=== PATIENT | female | born 1950 | race Two or more races ===

== ENCOUNTER 2019-02-04 11:45 | Emergency (ER) | payer OTHER | END 2019-02-04 18:00 | disposition home or self-care (01) | LOC: JER 11:45 ==

== ENCOUNTER 2019-02-22 16:24 | Inpatient (IN) | payer OTHER ==
[2019-02-22] MEDS ORDERED: KETOROLAC TROMETHAMINE 15 MG/ML VIAL IVPUSH ONE (16:37)
[2019-02-22] MEDS ORDERED: SODIUM CHLORIDE 0.9% 500 ML INFUS.BAG IV ONE (16:37)
--- NOTE | 2019-02-22 16:37 | PDOC ---
History of Present Illness - General Chief Complaint: Urinary Problem Stated Complaint: URINARY PROBLEMS Time Seen by Provider: 02/22/19 16:28 History Source: Patient Exam Limitations: No Limitations - History of Present Illness Initial Comments: 02/22/19 16:37 68YOF with h/o nephrolithiasis, recently diagnosed UTI (finished course of Keflex 2 days ago without symptomatic relief, sees Dr. Stone), IDDM, HTN, HLD , CVA, who p/w subjective fever since yesterday night, also urinary hesitancy and abdominal pain and bilateral flank pain. She notes the abdominal pain is mostly concentrated on the low abdomen but is diffuse. She has burning on urination but denies blood in the urine. She notes 2-3 months of milder abdominal pain but her current pain is much worse than normal per her report. She had her last colonoscopy/endoscopy about 2 years ago and had only a polyp removed which was not cancerous per her report. She struggles with irregular constipation and takes a bowel regimen at home, but has not had a BM in 3 days ( states this does happen to her sometimes). Past History - Past Medical History Allergies/Adverse Reactions: Allergies Allergy/AdvReac Type Severity Reaction Status Date / Time No Known Allergies Allergy Verified 02/22/19 16:32 Home Medications: Ambulatory Orders Losartan Potassium 50 mg PO DAILY 03/20/15 Alprazolam [Xanax] 1 mg PO TID #90 tablet MDD 3 06/29/16 Furosemide [Lasix -] 20 mg PO DAILY #30 tablet 06/29/16 Metoprolol Tartrate 50 mg PO DAILY #0 06/29/16 Topiramate [Trokendi Xr] 100 mg PO BID #0 06/29/16 Esomeprazole Magnesium [Nexium 24Hr] 40 mg PO HS 04/23/18 Insulin Degludec [Tresiba Flextouch U-100] 100 unit SQ DAILY 04/23/18 Liraglutide [Victoza -] 0.6 mg SQ DAILY@0700 04/23/18 Losartan Potassium [Cozaar -] 50 mg PO DAILY 04/23/18 Montelukast Sodium [Singulair] 10 mg PO DAILY 04/23/18 Naloxegol Oxalate [Movantik] 25 mg PO DAILY 04/23/18 Ondansetron [Zofran -] 4 mg PO BID #8 tablet 04/23/18 Oxybutynin Chloride [Ditropan -] 5 mg PO DAILY 04/23/18 metFORMIN XR [Glucophage *Xr* -] 500 mg PO BID 04/23/18 CVA: Yes COPD: No Diabetes: Yes HTN: Yes Psychiatric Problems: Yes (anxiety) - Surgical History Abdominal Surgery: Yes (tubal ligation) Appendectomy: Yes Cholecystectomy: Yes - Immunization History Immunization Up to Date: Yes - Suicide/Smoking/Psychosocial Hx Smoking History: Never smoked Hx Alcohol Use: No Drug/Substance Use Hx: No Substance Use Type: None Review of Systems - Review of Systems Able to Perform ROS?: Yes Comments:: 02/22/19 16:50 GEN: subjective fever, malaise, no generalized weakness, or weight change HEENT: sore throat, no ear pain, vision change, or eye pain CV: no chest pain, palpitations, lightheadedness, syncope, or edema RESP: no cough, wheezing, or SOB GI: abdominal pain, no nausea, vomiting, diarrhea, constipation, or white/black/ bloody stool : flank pain, dysuria, retention, no hematuria, incontinence, bleeding, or discharge MSK: no neck pain, muscle weakness/pain, or joint swelling/pain NEURO: no headache, seizure, vertigo, numbness, tingling, or focal weakness PSYCH: no substance use, no behavior change SKIN: no jaundice, no rash ROS otherwise negative except as noted in HPI *Physical Exam - Vital Signs 02/22/19 17:00 Initial Vital Signs Temp Pulse Resp BP Pulse Ox 98.0 F 82 16 141/67 97 02/22/19 16:28 02/22/19 16:28 02/22/19 16:28 02/22/19 16:28 02/22/19 16:28 - Physical Exam Comments: 02/22/19 17:00 GENERAL: a bit uncomfortable but well-appearing and nontoxic, A/Ox4, no distress at rest, answers questions appropriately, accompanied by HEENT: PERRLA, EOMI, moist mucous membranes NECK/BACK: no midline ttp, no spinal stepoff or deformity, no hematoma, full ROM , neck supple CARDIOVASCULAR: regular rate/rhythm, normal S1S2, no MGR, strong peripheral pulses, capillary refill <2 seconds, extremities wwp, no edema LUNGS/RESPIRATORY: no respiratory distress, CTAB GI/ABDOMEN: symmetric [id number], normoactive BS, soft, moderare suprapubic ttp and mild diffuse ttp of the remainder of the abdomen, no midline pulsatile masses : bilateral CVA tenderness EXTREMITIES: no muscle atrophy, no acute deformity SKIN: warm and dry, no pallor, no jaundice, no rash, no bruising, no skin breakdown, no cuts, no lesions NEUROLOGICAL: GCS 15, CN II-XII grossly intact, 5/5 strength proximally and distally, no facial droop Procedures - Bedside Ultrasound Remarks: STUDY: renal and bladder INDICATION: flank pain, reported urinary retention, dysuria, h/o renal stones FINDINGS: no hydronephrosis, no e/o obstructive uropathy, normal renal size bilaterally CONCLUSION: retained urine >200cc immediately after urination but otherwise normal renal/bladder US Heart Score/ECG Review #1 02/22/19 18:51 NSR rate 66 with normal axis and intervals, isolated TWI in III, no ischemic ST- T changes ED Treatment Course - LABORATORY CBC & Chemistry Diagram: 02/22/19 19:55 02/22/19 19:55 Medical Decision Making - Medical Decision Making 02/22/19 17:03 68YOF with h/o nephrolithiasis and recent UTI tx with Keflex with course ending 2 days ago. Initial Vital Signs Temp Pulse Resp BP Pulse Ox 98.0 F 82 16 141/67 97 02/22/19 16:28 02/22/19 16:28 02/22/19 16:28 02/22/19 16:28 02/22/19 16:28 Exam: As noted in Physical Exam section. DDX IBNLT: UTI, pyelonephritis, cervicitis, PID, TOA, other STD/STI, vaginal lesion, vulvuvaginal candidiasis, interstitial cystitis, neurogenic bladder, renal colic, obstructive uropathy, ectopic, ovarian torsion, ovarian cyst, endometritis, malignancy, hernia, appendicitis, proctitis, sigmoid diverticulitis wwo abscess or perforation, endometriosis, primary dysmenorrhea, etc. W/U ordered: CBCD CMP Lipase UA UCx TX ordered: IVF, Toradol Patient's labs resulted under under newly-created patient record for her. These MRNs will need to be merged but I am informed by Registration that Medical Records will need to do this later. The following are blood lab results from the patient's newly-created record. I have contacted Chemistry lab and they are working on transferring these to her official record. Laboratory Tests 02/22/19 02/22/19 02/22/19 17:00 17:00 17:00 WBC 9.9 RBC 4.55 Hgb 11.8 Hct 35.9 MCV 78.8 L MCH 25.9 MCHC 32.9 RDW 15.2 Plt Count 211 MPV 10.6 Absolute Neuts (auto) 5.0 Neutrophils % 50.7 Lymphocytes % 37.0 Monocytes % 6.8 Eosinophils % 4.3 Basophils % 1.2 Nucleated RBC % 0 Sodium 139 Potassium 4.1 Chloride 104 Carbon Dioxide 30 Anion Gap 5 L BUN 6.9 L Creatinine 0.7 Est GFR (CKD-EPI)AfAm 101.74 Est GFR (CKD-EPI)NonAf 87.78 Random Glucose 113 H Lactic Acid 1.8 Calcium 9.2 Total Bilirubin 0.5 AST 25 ALT 24 Alkaline Phosphatase 77 Total Protein 8.0 Albumin 3.8 POCUS: See "Procedures" section Labs drawn as below: Laboratory Tests 02/22/19 02/22/19 02/22/19 19:55 19:55 19:55 WBC 9.1 RBC 4.20 Hgb 10.9 Hct 33.3 MCV 79.4 L MCH 25.9 MCHC 32.6 RDW 14.9 Plt Count 200 MPV 10.4 Absolute Neuts (auto) 5.0 Neutrophils % 54.9 Lymphocytes % 34.2 Monocytes % 6.6 Eosinophils % 3.7 Basophils % 0.6 Nucleated RBC % 0 Sodium 141 Potassium 4.2 Chloride 106 Carbon Dioxide 29 Anion Gap 6 L BUN 7.0 Creatinine 0.7 Est GFR (CKD-EPI)AfAm 101.74 Est GFR (CKD-EPI)NonAf 87.78 Random Glucose 110 H Calcium 8.7 Total Bilirubin 0.4 AST 22 ALT 24 Alkaline Phosphatase 72 Total Protein 7.3 Albumin 3.6 Lipase 111 Urine Color Urine Appearance Urine pH Ur Specific [place] Urine Protein Urine Glucose (UA) Urine Ketones Urine Blood Urine Nitrite Urine Bilirubin Urine Urobilinogen Ur Leukocyte Esterase 02/22/19 20:05 WBC RBC Hgb Hct MCV MCH MCHC RDW Plt Count MPV Absolute Neuts (auto) Neutrophils % Lymphocytes % Monocytes % Eosinophils % Basophils % Nucleated RBC % Sodium Potassium Chloride Carbon Dioxide Anion Gap BUN Creatinine Est GFR (CKD-EPI)AfAm Est GFR (CKD-EPI)NonAf Random Glucose Calcium Total Bilirubin AST ALT Alkaline Phosphatase Total Protein Albumin Lipase Urine Color Yellow Urine Appearance Clear Urine pH 7.5 Ur Specific [place] 1.007 L Urine Protein Negative Urine Glucose (UA) Negative Urine Ketones Negative Urine Blood Negative Urine Nitrite Negative Urine Bilirubin Negative Urine Urobilinogen 0.2 Ur Leukocyte Esterase Negative 02/22/19 21:05 UA is unexpectedly negative, so we have no explanation for her abdominal/flank pain. Rectal exam without impaction or gross blood. CT Abdomen/Pelvis ordered. CT/ABDOMEN PELVIS CT WITH CONTR HISTORY PROVIDED: Lower abdominal pain. Sequential axial images were obtained from the domes of the diaphragms through the symphysis pubis following the administration of intravenous contrast material. The lung bases are clear. There is a calcified granuloma within the right lower lobe. The liver is normal in size. It is hypodense in texture consistent with diffuse fatty infiltration. No mass lesions are identified within the liver. The spleen, pancreas, adrenal glands and kidneys demonstrate no significant abnormalities. The gallbladder has been removed. There is no evidence of intra-abdominal or retroperitoneal lymphadenopathy or fluid collections. There is no evidence of pneumoperitoneum, bowel obstruction or intra-abdominal abscess. There is no CT evidence of acute appendicitis or diverticulitis. Examination of the pelvis demonstrates no evidence of pelvic masses, fluid collections or lymphadenopathy. There is no evidence of acute bony pathology. IMPRESSION: Diffuse fatty infiltration of the liver with no evidence of acute pathology within the abdomen or pelvis. 02/22/19 22:33 The Pts symptoms persist despite ED treatments. She has intractable abdominal pain despite toradol, morphine, Ofirmev, GI meds. She is unsafe for discharge at this time. She requires further hospital observation, workup, and treatment. Microblog sent to [facility] for admission for Dr. Humphreys patients at this time. Blank Decision to Admit order is placed per ED protocol. 02/22/19 23:[address] Meza and Decision to Admit order corrected with Dr. Humphreys' s name per Dr. Meza' request. *DC/Admit/Observation/Transfer Diagnosis at time of Disposition: Intractable abdominal pain - Discharge Dispostion Condition at time of disposition: Guarded Decision to Admit order: Yes - Referrals Referrals: Hannah Humphreys MD [Primary Care Provider] - - Patient Instructions - Post Discharge Activity
--- NOTE | 2019-02-22 17:22 | PDOC ---
Documentation entered by Wilberto Bella SCRIBE, acting as scribe for Deidra Gibson DO. Deidra Gibson DO: This documentation has been prepared by the Shayne bolanos Aiswarya, SCRIBE, under my direction and personally reviewed by me in its entirety. I confirm that the documentation accurately reflects all work, treatment, procedures, and medical decision making performed by me. Attending Attestation - Resident Resident Name: Audrey Tenorio - ED Attending Attestation I have performed the following: I have examined & evaluated the patient, The case was reviewed & discussed with the resident, I agree w/resident's findings & plan, Exceptions are as noted - HPI HPI: 02/22/19 16:53 The patient is a 68 year old female, with a significant PMH of diabetes, CVA, HTN, and anxiety who presents to the emergency department with possible kidney stones. Patient endorses associated symptom of bilateral flank pain, abdominal pain, and urinary hesitancy that began a few weeks. The patient mentions she finished her course of Keflex 2 days ago without symptomatic reliefs. The patient denies chest pain, shortness of breath, headache and dizziness.Denies fever, chills, nausea, vomit, diarrhea and constipation. Denies frequency, urgency and hematuria. Allergies: NKDA Past surgical history: tubal ligation Social history: None reported PCP: Dr. Humphreys - Physicial Exam PE: 02/22/19 16:55 Constitutional: Awake, alert, oriented. No acute distress. Head: Normocephalic. Atraumatic Cardiovascular: Regular rate. Regular rhythm. S1, S2 regular. Distal pulses are 2+ and symmetric. Pulmonary/Chest: No evidence of respiratory distress. Clear to auscultation bilaterally No wheezing, rales or rhonchi. Abdominal: +Right lower and suprapubic tenderness. Back: +Lower pelvis bilateral CVA right greater than left. Skin: Skin is warm and dry. No petechiae. No purpura. Neurological: Alert and oriented to person, place, and time. Cranial nerves II -XII are grossly intact. Normal speech. Strength is grossly symmetric. No sensory deficits. Psychiatric: Good eye contact. Normal interaction, affect and behavior. - Medical Decision Making 02/22/19 17:21 I, Dr. Deidra Kurkowski, DO, attest that this document has been prepared under my direction and personally reviewed by me in its entirety. I further attest, that it accurately reflects all work, treatment, procedures and medical decision -making performed by me. 02/22/19 17:24 a/p: 68yo female with hx of renal colic and uti - follows with fabián brayden and nicanor with b/l flank pain and dysuria -pt stopped abx 2 days ago, was on keflex until 2 days ago -dysuria, hesitancy, no hematuria -subjective fever last night -b/l cva ttp -suprapubic ttp -suspect uti and pyelo -will send labs, ua, ucx -bedside ultrasound of the kidneys/bladder - indication: flank pain, suprapubic pain, hx of renal stones -no hydro b/l, bladder has 266cc, no ff, pt had just urinated, with remaining 266cc urine 02/22/19 17:32 will give ivf hydration, suspect pt with uti failed outpt therapy, will need iv abx 02/22/19 19:09 wbc not elevated, 9.9 renal function not elevated, bun 6.9, cr 0.7 02/22/19 19:10 ua pending 02/22/19 20:56 no uti, ua neg will obtain ct abd/pelvis for further eval 02/22/19 22:20 fatty liver infiltration on ct no acute pathology stool in R colon 02/22/19 23:16 resident discussed the case with Dr. Meza who accepts the patient to obs Heart Score/ECG Review - ECG Intrepretation Comment:: 02/22/19 19:08 sinus at 66, low voltage, nl axis, no acute s/tt wave findings
[2019-02-22 20:12] LABS: BASO % 0.6 % (0-2.0); EOS % 3.7 % (0-4.5); HEMATOCRIT 33.3 % (32.4-45.2); HEMOGLOBIN 10.9 GM/dL (10.7-15.3); LYMPH % 34.2 % (8-40); MCH 25.9 pg (25.7-33.7); MCHC 32.6 g/dl (32.0-36.0); MEAN CELL VOLUME 79.4 fl (80-96); MEAN PLT VOLUME 10.4 fl (7.5-11.1); MONO % 6.6 % (3.8-10.2); NEUT % 54.9 % (42.8-82.8); PLATELET COUNT 200 K/MM3 (134-434); RDW 14.9 % (11.6-15.6); WHITE BLOOD COUNT 9.1 K/mm3 (4.0-10.0)
[2019-02-22 20:38] LABS: ALBUMIN 3.6 g/dl (3.4-5.0); BILIRUBIN,TOTAL 0.4 mg/dL (0.2-1); CALCIUM 8.7 mg/dL (8.5-10.1); CREATININE 0.7 mg/dL (0.55-1.3); POTASSIUM 4.2 mmol/L (3.5-5.1); TOT PROT 7.3 g/dl (6.4-8.2)
[2019-02-22 20:40] LABS: PH,URINE 7.5 (5.0-8.0); URINE APPEARANCE CLEAR; URINE BILIRUBIN NEGATIVE (NEGATIVE); URINE COLOR YELLOW; URINE GLUCOSE (UA) NEGATIVE (NEGATIVE); URINE KETONE NEGATIVE (NEGATIVE); URINE LEUK ESTERASE NEGATIVE (NEGATIVE); URINE NITRITE NEGATIVE (NEGATIVE); URINE PROTEIN NEGATIVE (NEGATIVE); URINE UROBILINOGEN 0.2 mg/dL (0.2-1.0)
[2019-02-22] MEDS ORDERED: morphine CARPU-JECT 4 MG/1 ML DISP.SYRIN IVPUSH ONE (21:03)
[2019-02-22] MEDS ORDERED: ONDANSETRON 4 MG/2 ML VIAL IVPUSH ONE (21:04)
[2019-02-22] MEDS ORDERED: MAGNESIUM CITRATE 300 ML BOTTLE PO ONE (22:32)
[2019-02-22] MEDS ORDERED: ACETAMINOPHEN 1000 MG/100 ML VIAL (NON FORMULARY) IVPB ONE (22:32)
[2019-02-22] MEDS ORDERED: FAMOTIDINE 20 MG/50 ML IVPB 20 MG/50 ML MG IVPB ONE (22:34)
--- NOTE | 2019-02-22 23:50 | HP ---
CHIEF COMPLAINT: lower abdominal pain PCP:Petr HISTORY OF PRESENT ILLNESS: 68yo woman with underlying anxiety presented to er c/o several weeks of vague abdominal pain located to suprabic area, no radiation. Reports difficulty passing urine- says she has desire to urinate but cannot. Recently underwent course of Keflex for uti. Reports some constipation- last BM -3days ago. ER course was notable for: (1) morphine (2) ketorolac (3) famotidine Recent Travel: no PAST MEDICAL HISTORY: DM, CVA, HTN, and anxiety PAST SURGICAL HISTORY: Appendectomy-20 years ago?, Cholecystectomy-10 years ago , right sided oophorectomy, tubal ligation Social History: Smoking: quit smoking at age 38 Alcohol: no Drugs: no Family History: Allergies No Known Allergies Allergy (Verified 02/22/19 16:32) HOME MEDICATIONS: Home Medications Medication Instructions Recorded Losartan Potassium 50 mg PO DAILY 03/20/15 Alprazolam [Xanax] 1 mg PO TID #90 tablet MDD 3 06/29/16 Furosemide [Lasix -] 20 mg PO DAILY #30 tablet 06/29/16 Metoprolol Tartrate 50 mg PO DAILY #0 06/29/16 Topiramate [Trokendi Xr] 100 mg PO BID #0 06/29/16 Esomeprazole Magnesium [Nexium 40 mg PO HS 04/23/18 24Hr] Insulin Degludec [Tresiba 100 unit SQ DAILY 04/23/18 Flextouch U-100] Liraglutide [Victoza -] 0.6 mg SQ DAILY@0700 04/23/18 Losartan Potassium [Cozaar -] 50 mg PO DAILY 04/23/18 Montelukast Sodium [Singulair] 10 mg PO DAILY 04/23/18 Naloxegol Oxalate [Movantik] 25 mg PO DAILY 04/23/18 Ondansetron [Zofran -] 4 mg PO BID #8 tablet 04/23/18 Oxybutynin Chloride [Ditropan -] 5 mg PO DAILY 04/23/18 metFORMIN XR [Glucophage *Xr* -] 500 mg PO BID 04/23/18 REVIEW OF SYSTEMS CONSTITUTIONAL: Absent: fever, chills, diaphoresis, generalized weakness, malaise, loss of appetite, weight change HEENT: Absent: rhinorrhea, nasal congestion, throat pain, throat swelling, difficulty swallowing, mouth swelling, ear pain, eye pain, visual changes CARDIOVASCULAR: Absent: chest pain, syncope, palpitations, irregular heart rate, lightheadedness , peripheral edema RESPIRATORY: Absent: cough, shortness of breath, dyspnea with exertion, orthopnea, wheezing, stridor, hemoptysis GASTROINTESTINAL: Absent: , abdominal distension, nausea, vomiting, diarrhea, melena, hematochezia present- abdominal pain constipation, GENITOURINARY: Absent: dysuria, frequency, urgency, hesitancy, hematuria, flank pain, genital pain MUSCULOSKELETAL: Absent: myalgia, arthralgia, joint swelling, back pain, neck pain SKIN: Absent: rash, itching, pallor HEMATOLOGIC/IMMUNOLOGIC: Absent: easy bleeding, easy bruising, lymphadenopathy, frequent infections ENDOCRINE: Absent: unexplained weight gain, unexplained weight loss, heat intolerance, cold intolerance NEUROLOGIC: Absent: headache, focal weakness or paresthesias, dizziness, unsteady gait, seizure, mental status changes, bladder or bowel incontinence PSYCHIATRIC: Absent: depression, suicidal or homicidal ideation, hallucinations. present- anxiety, PHYSICAL EXAMINATION Vital Signs - 24 hr 02/22/19 16:28 Temperature 98.0 F Pulse Rate 82 Respiratory 16 Rate Blood Pressure 141/67 O2 Sat by Pulse 97 Oximetry (%) GENERAL: Awake, alert, and fully oriented, in no acute distress. HEAD: Normal with no signs of trauma. EYES: Pupils equal, round and reactive to light, extraocular movements intact, sclera anicteric, conjunctiva clear. No lid lag. EARS, NOSE, THROAT: Ears normal, nares patent, oropharynx clear without exudates. Moist mucous membranes. NECK: Normal range of motion, supple without lymphadenopathy, JVD, or masses. LUNGS: Breath sounds equal, clear to auscultation bilaterally. No wheezes, and no crackles. No accessory muscle use. HEART: Regular rate and rhythm, normal S1 and S2 without murmur, rub or gallop. ABDOMEN: Soft, tender in eppigastric and right lower quadrant, not distended, normoactive bowel sounds, no guarding, no rebound, no masses. MUSCULOSKELETAL: Normal range of motion at all joints. No bony deformities or tenderness. No CVA tenderness. UPPER EXTREMITIES: 2+ pulses, warm, well-perfused. No cyanosis. No clubbing. No peripheral edema. LOWER EXTREMITIES: 2+ pulses, warm, well-perfused. No calf tenderness. No peripheral edema. NEUROLOGICAL: Cranial nerves II-XII intact. Normal speech. Normal gait. PSYCHIATRIC: Cooperative. Good eye contact. Appropriate mood and affect. SKIN: Warm, dry, normal turgor, no rashes or lesions noted, normal capillary refill. Laboratory Results - last 24 hr 02/22/19 02/22/19 02/22/19 19:55 19:55 19:55 WBC 9.1 RBC 4.20 Hgb 10.9 Hct 33.3 MCV 79.4 L MCH 25.9 MCHC 32.6 RDW 14.9 Plt Count 200 MPV 10.4 Absolute Neuts (auto) 5.0 Neutrophils % 54.9 Lymphocytes % 34.2 Monocytes % 6.6 Eosinophils % 3.7 Basophils % 0.6 Nucleated RBC % 0 Sodium 141 Potassium 4.2 Chloride 106 Carbon Dioxide 29 Anion Gap 6 L BUN 7.0 Creatinine 0.7 Est GFR (CKD-EPI)AfAm 101.74 Est GFR (CKD-EPI)NonAf 87.78 Random Glucose 110 H Calcium 8.7 Total Bilirubin 0.4 AST 22 ALT 24 Alkaline Phosphatase 72 Total Protein 7.3 Albumin 3.6 Lipase 111 Urine Color Urine Appearance Urine pH Ur Specific [place] Urine Protein Urine Glucose (UA) Urine Ketones Urine Blood Urine Nitrite Urine Bilirubin Urine Urobilinogen Ur Leukocyte Esterase 02/22/19 20:05 WBC RBC Hgb Hct MCV MCH MCHC RDW Plt Count MPV Absolute Neuts (auto) Neutrophils % Lymphocytes % Monocytes % Eosinophils % Basophils % Nucleated RBC % Sodium Potassium Chloride Carbon Dioxide Anion Gap BUN Creatinine Est GFR (CKD-EPI)AfAm Est GFR (CKD-EPI)NonAf Random Glucose Calcium Total Bilirubin AST ALT Alkaline Phosphatase Total Protein Albumin Lipase Urine Color Yellow Urine Appearance Clear Urine pH 7.5 Ur Specific [place] 1.007 L Urine Protein Negative Urine Glucose (UA) Negative Urine Ketones Negative Urine Blood Negative Urine Nitrite Negative Urine Bilirubin Negative Urine Urobilinogen 0.[address] ct of abdomen wnl ASSESSMENT/PLAN: #Intractable abdominal pain- no source identified. CT of abd/pelvis normal. No renal stones seen. LFTs, lipase normal. Differential includes constipation, urinary retention, adhesions from prior surgeries, gastritis. -admit to med/surg -fleets enema -protonix 40mg po -alcaraz catheter for possible urinary retention -pelvic u/s to assess for adhesions -tylenol prn for pain #anxiety -home xanax prn #headache/migraines -c/w Topiramate home dose #htn -borderline controlled -furosemide -metoprolol -losartan #DM -novolog sliding scale -diabetic diet #dvt ppx -SCDs Visit type - Emergency Visit Emergency Visit: Yes ED Registration Date: 02/22/19 Care time: The patient presented to the Emergency Department on the above date and was hospitalized for further evaluation of their emergent condition. - New Patient This patient is new to me today: Yes Date on this admission: 02/23/19 - Critical Care Critical Care patient: No
[2019-02-22] MEDS ORDERED: PANTOPRAZOLE 40 MG TABLET (FP) PO ONE (23:54)
[2019-02-22] MEDS ORDERED: SODIUM PHOSPHATE/NA BIPHOS 133 ML ENEMA PR ONE (23:55)
[2019-02-23] MEDS: SODIUM CHLORIDE 1,000 ML IV SCH ×2 (00:41→20:00)
[2019-02-23] MEDS: ACETAMINOPHEN 325 MG TABLET (FP) PO PRN (02:21)
[2019-02-23] MEDS: ALPRAZolam 0.25 MG TABLET PO SCH ×3 (06:18→21:23)
[2019-02-23] MEDS: DOCUSATE SODIUM 100 MG CAPSULE (FP) PO SCH ×3 (06:18→21:27)
[2019-02-23] MEDS: INSULIN SLIDING SCALE (NOVOLOG) 1 VIAL SQ SCH ×4 (06:21→21:25)
[2019-02-23] MEDS: KETOROLAC TROMETHAMINE 15 MG/ML VIAL IVPUSH PRN (06:40)
[2019-02-23 07:45] LABS: HEMATOCRIT 31.6 % (32.4-45.2); HEMOGLOBIN 10.5 GM/dL (10.7-15.3); MCHC 33.2 g/dl (32.0-36.0); MEAN CELL VOLUME 78.2 fl (80-96); MEAN PLT VOLUME 10.6 fl (7.5-11.1); PLATELET COUNT 184 K/MM3 (134-434); RBC 4.04 M/mm3 (3.60-5.2); RDW 14.9 % (11.6-15.6)
[2019-02-23 07:50] LABS: BLOOD UREA NITROGEN 6.8 mg/dL (7-18); CALCIUM 8.7 mg/dL (8.5-10.1); CREATININE 0.7 mg/dL (0.55-1.3); POTASSIUM 4.4 mmol/L (3.5-5.1)
[2019-02-23] MEDS ORDERED: PATIENT'S OWN MEDICATION (NON-FORMULARY) (Esomeprazole Magnesium [Nexium 24hr] 40 MG) PO SCH (09:00)
[2019-02-23] MEDS: PANTOPRAZOLE 40 MG TABLET (FP) PO SCH (09:30)
[2019-02-23] MEDS: FUROSEMIDE 20 MG TABLET (FP) PO SCH (09:31)
[2019-02-23] MEDS: METOPROLOL TARTRATE 50 MG TABLET (FP) PO SCH (09:31)
[2019-02-23] MEDS: LOSARTAN POTASSIUM 50 MG TABLET (FP) PO SCH (09:31)
[2019-02-23] MEDS ORDERED: PATIENT'S OWN MEDICATION (NON-FORMULARY) (Topiramate [Trokendi Xr] 100 MG) PO SCH (10:00)
[2019-02-23] MEDS ORDERED: LOSARTAN POTASSIUM 25 MG TABLET PO SCH (10:00)
--- NOTE | 2019-02-23 10:50 | PN ---
Progress Note, Physician Chief Complaint: AWAKE ALERT EVENTS AND NOTES REVIEWED C/O ABD/SUPRAPUBIC PAIN SOME NAUSEA - Current Medication List Current Medications: Active Medications Acetaminophen (Tylenol -) 650 mg PO Q4H PRN PRN Reason: PAIN LEVEL 1-5 Last Admin: 02/23/19 02:21 Dose: 650 mg Alprazolam (Xanax -) 1 mg PO TID REPLACED BY [facility] Last Admin: 02/23/19 06:18 Dose: 1 mg Docusate Sodium (Colace -) 100 mg PO TID REPLACED BY [facility] Last Admin: 02/23/19 06:18 Dose: 100 mg Furosemide (Lasix -) 20 mg PO DAILY REPLACED BY [facility] Last Admin: 02/23/19 09:31 Dose: 20 mg Sodium Chloride (Normal Saline -) 1,000 mls @ 75 mls/hr IV ASDIR REPLACED BY [facility] Last Admin: 02/23/19 00:41 Dose: 75 mls/hr Insulin Aspart (Novolog Vial Sliding Scale -) 1 vial SQ ACHS REPLACED BY [facility]; Protocol Last Admin: 02/23/19 06:21 Dose: Not Given Ketorolac Tromethamine (Toradol Injection -) 15 mg IVPUSH Q6H PRN PRN Reason: PAIN LEVEL 1-5 Stop: 02/28/19 06:21 Last Admin: 02/23/19 06:40 Dose: 15 mg Losartan Potassium (Cozaar -) 50 mg PO DAILY REPLACED BY [facility] Last Admin: 02/23/19 09:31 Dose: 50 mg Metoprolol Tartrate (Lopressor -) 50 mg PO DAILY REPLACED BY [facility] Last Admin: 02/23/19 09:31 Dose: 50 mg Montelukast Sodium (Singulair -) 10 mg PO HS REPLACED BY [facility] Non-Formulary Medication (Topiramate [Trokendi Xr]) 100 mg PO BID REPLACED BY [facility] Pantoprazole Sodium (Protonix -) 40 mg PO DAILY REPLACED BY [facility] Last Admin: 02/23/19 09:30 Dose: 40 mg - Objective Vital Signs: Vital Signs Temperature 97.7 F 02/23/19 10:17 Pulse Rate 65 02/23/19 10:17 Respiratory Rate 20 02/23/19 10:17 Blood Pressure 124/59 L 02/23/19 10:17 O2 Sat by Pulse Oximetry (%) 99 02/23/19 08:00 Constitutional: Yes: Mild Distress Eyes: Yes: WNL HENT: Yes: WNL Neck: Yes: WNL Cardiovascular: Yes: Regular Rate and Rhythm Respiratory: Yes: WNL Gastrointestinal: Yes: Tenderness Genitourinary: Yes: WNL Musculoskeletal: Yes: WNL Extremities: Yes: WNL Edema: No Peripheral Pulses WNL: Yes Integumentary: Yes: WNL Wound/Incision: Yes: Clean/Dry Neurological: Yes: WNL ...Motor Strength: WNL Psychiatric: Yes: WNL Labs: CBC, BMP 02/23/19 06:24 02/23/19 06:24 Problem List - Problems (1) Intractable abdominal pain Code(s): R10.9 - UNSPECIFIED ABDOMINAL PAIN (2) Headache Code(s): R51 - HEADACHE (3) DMII (diabetes mellitus, type 2) Code(s): E11.9 - TYPE 2 DIABETES MELLITUS WITHOUT COMPLICATIONS (4) Anxiety Code(s): F41.9 - ANXIETY DISORDER, UNSPECIFIED (5) HTN (hypertension) Code(s): I10 - ESSENTIAL (PRIMARY) HYPERTENSION Assessment/Plan SURGICAL EVAL D/W DR MARQUIS QUESTIONABLE RULE OUT OF SURGICAL ADHESIONS? PPI IVF ZOFRAN PAIN CONTROL DM CHECK A1C BMG ACHS
[2019-02-23] MEDS ORDERED: ONDANSETRON *ODT* 4 MG TABLET SL PRN (10:51)
[2019-02-23] MEDS ORDERED: INSULIN (NOVOLOG) ASPART 100 UNITS/ML 10ML VIAL ONE (21:20)
[2019-02-23] MEDS: MONTELUKAST NA 10 MG TABLET PO SCH (21:24)
[2019-02-24] MEDS: KETOROLAC TROMETHAMINE 15 MG/ML VIAL IVPUSH PRN (01:27)
[2019-02-24] MEDS: INSULIN SLIDING SCALE (NOVOLOG) 1 VIAL SQ SCH ×4 (06:02→21:57)
[2019-02-24] MEDS: ALPRAZolam 0.25 MG TABLET PO SCH ×3 (06:03→21:38)
[2019-02-24] MEDS: DOCUSATE SODIUM 100 MG CAPSULE (FP) PO SCH ×3 (06:05→21:40)
[2019-02-24 06:36] LABS: HEP.C VIRUS AB <0.1 s/co ratio (0.0-0.9)
[2019-02-24 07:36] LABS: BILIRUBIN,TOTAL 0.7 mg/dL (0.2-1); BLOOD UREA NITROGEN 7.8 mg/dL (7-18); CALCIUM 8.4 mg/dL (8.5-10.1); CREATININE 0.6 mg/dL (0.55-1.3); POTASSIUM 4.3 mmol/L (3.5-5.1); TOT PROT 6.4 g/dl (6.4-8.2)
[2019-02-24 07:37] LABS: HEMATOCRIT 32.3 % (32.4-45.2); HEMOGLOBIN 10.4 GM/dL (10.7-15.3); MCH 25.2 pg (25.7-33.7); MCHC 32.1 g/dl (32.0-36.0); MEAN CELL VOLUME 78.5 fl (80-96); MEAN PLT VOLUME 10.8 fl (7.5-11.1); RBC 4.11 M/mm3 (3.60-5.2); RDW 15.4 % (11.6-15.6); WHITE BLOOD COUNT 7.3 K/mm3 (4.0-10.0)
[2019-02-24 08:37] LABS: PLATELET COUNT 183 K/MM3 (134-434)
[2019-02-24] MEDS: SODIUM CHLORIDE 1,000 ML IV SCH ×2 (09:39→23:02)
[2019-02-24] MEDS: PANTOPRAZOLE 40 MG TABLET (FP) PO SCH (09:43)
[2019-02-24] MEDS: FUROSEMIDE 20 MG TABLET (FP) PO SCH (09:43)
[2019-02-24] MEDS: LOSARTAN POTASSIUM 50 MG TABLET (FP) PO SCH (09:43)
[2019-02-24] MEDS: METOPROLOL TARTRATE 50 MG TABLET (FP) PO SCH (09:44)
[2019-02-24] MEDS: ACETAMINOPHEN 325 MG TABLET (FP) PO PRN ×2 (09:51→21:41)
[2019-02-24] MEDS ORDERED: ALPRAZolam 2 MG TABLET PO ONE (14:21)
--- NOTE | 2019-02-24 14:21 | PN ---
Progress Note, Physician Chief Complaint: STILL 04/20 ABD/PUBIC PAIN NO FEVER POOR APPETITE - Current Medication List Current Medications: Active Medications Acetaminophen (Tylenol -) 650 mg PO Q4H PRN PRN Reason: PAIN LEVEL 1-5 Last Admin: 02/24/19 09:51 Dose: 650 mg Alprazolam (Xanax -) 1 mg PO TID [facility] Last Admin: 02/24/19 14:17 Dose: 1 mg Docusate Sodium (Colace -) 100 mg PO TID [facility] Last Admin: 02/24/19 14:16 Dose: 100 mg Furosemide (Lasix -) 20 mg PO DAILY [facility] Last Admin: 02/24/19 09:43 Dose: 20 mg Sodium Chloride (Normal Saline -) 1,000 mls @ 75 mls/hr IV ASDIR [facility] Last Admin: 02/24/19 09:39 Dose: 75 mls/hr Insulin Aspart (Novolog Vial Sliding Scale -) 1 vial SQ ACHS [facility]; Protocol Last Admin: 02/24/19 12:27 Dose: 4 units Ketorolac Tromethamine (Toradol Injection -) 15 mg IVPUSH Q6H PRN PRN Reason: PAIN LEVEL 1-5 Stop: 02/28/19 06:21 Last Admin: 02/24/19 01:27 Dose: 15 mg Losartan Potassium (Cozaar -) 50 mg PO DAILY [facility] Last Admin: 02/24/19 09:43 Dose: 50 mg Metoprolol Tartrate (Lopressor -) 50 mg PO DAILY [facility] Last Admin: 02/24/19 09:44 Dose: 50 mg Montelukast Sodium (Singulair -) 10 mg PO [facility] Last Admin: 02/23/19 21:24 Dose: 10 mg Non-Formulary Medication (Topiramate [Trokendi Xr]) 100 mg PO BID [facility] Ondansetron HCl (Zofran Odt -) 4 mg SL Q6H PRN PRN Reason: NAUSEA AND/OR VOMITING Pantoprazole Sodium (Protonix -) 40 mg PO DAILY [facility] Last Admin: 02/24/19 09:43 Dose: 40 mg - Objective Vital Signs: Vital Signs Temperature 97.5 F L 02/24/19 12:55 Pulse Rate 60 02/24/19 12:55 Respiratory Rate 20 02/24/19 12:55 Blood Pressure 141/69 02/24/19 12:55 O2 Sat by Pulse Oximetry (%) 95 02/23/19 21:00 Constitutional: Yes: Mild Distress Eyes: Yes: WNL HENT: Yes: WNL Neck: Yes: WNL Cardiovascular: Yes: WNL Respiratory: Yes: WNL Gastrointestinal: Yes: Tenderness Musculoskeletal: Yes: WNL Extremities: Yes: WNL Peripheral Pulses WNL: Yes Wound/Incision: Yes: Clean/Dry Neurological: Yes: WNL ...Motor Strength: WNL Psychiatric: Yes: WNL Labs: CBC, BMP 02/24/19 06:01 02/24/19 06:01 Problem List - Problems (1) Intractable abdominal pain Code(s): R10.9 - UNSPECIFIED ABDOMINAL PAIN (2) Headache Code(s): R51 - HEADACHE (3) DMII (diabetes mellitus, type 2) Code(s): E11.9 - TYPE 2 DIABETES MELLITUS WITHOUT COMPLICATIONS (4) Anxiety Code(s): F41.9 - ANXIETY DISORDER, UNSPECIFIED (5) HTN (hypertension) Code(s): I10 - ESSENTIAL (PRIMARY) HYPERTENSION Assessment/Plan ORDERING MRI ABD/PELVIS WITH AND W/O CONTRAST GI EVAL PAIN CONTROL OOB TO CHAIR
--- NOTE | 2019-02-24 17:08 | EKG ---
Test Reason : Blood Pressure : / mmHG Vent. Rate : 066 BPM Atrial Rate : 066 BPM P-R Int : 146 ms QRS Dur : 090 ms QT Int : 436 ms P-R-T Axes : 004 -10 015 degrees QTc Int : 457 ms NORMAL SINUS RHYTHM NORMAL ECG WHEN COMPARED WITH ECG OF 04-FEB-2019 15:01, NO SIGNIFICANT CHANGE WAS FOUND Confirmed by MD ABDIAZIZ, KEILA ([id number]) on 02/24/2019 5:08:46 PM Referred By: Confirmed By:KEILA FREED MD
[2019-02-24] MEDS: MONTELUKAST NA 10 MG TABLET PO SCH (21:38)
[2019-02-25] MEDS: ACETAMINOPHEN 325 MG TABLET (FP) PO PRN ×3 (03:03→15:14)
[2019-02-25] MEDS: ALPRAZolam 0.25 MG TABLET PO SCH ×3 (06:47→21:58)
[2019-02-25] MEDS: INSULIN SLIDING SCALE (NOVOLOG) 1 VIAL SQ SCH ×4 (06:48→21:58)
[2019-02-25] MEDS: DOCUSATE SODIUM 100 MG CAPSULE (FP) PO SCH ×3 (06:48→21:58)
[2019-02-25] MEDS: LOSARTAN POTASSIUM 50 MG TABLET (FP) PO SCH (09:12)
[2019-02-25] MEDS: PANTOPRAZOLE 40 MG TABLET (FP) PO SCH (09:12)
[2019-02-25] MEDS: FUROSEMIDE 20 MG TABLET (FP) PO SCH (09:12)
[2019-02-25] MEDS: KETOROLAC TROMETHAMINE 15 MG/ML VIAL IVPUSH PRN (09:12)
[2019-02-25] MEDS: METOPROLOL TARTRATE 50 MG TABLET (FP) PO SCH (09:12)
--- NOTE | 2019-02-25 10:43 | PN ---
Progress Note, Physician Chief Complaint: Abdominal Pain History of Present Illness: Previous notes and events reviewed awake and alert NAD complain of lower abdominal pain denies nausea, vomiting - Current Medication List Current Medications: Active Medications Acetaminophen (Tylenol -) 650 mg PO Q4H PRN PRN Reason: PAIN LEVEL 1-5 Last Admin: 02/25/19 07:03 Dose: 650 mg Alprazolam (Xanax -) 1 mg PO TID [facility] Last Admin: 02/25/19 06:47 Dose: 1 mg Alprazolam (Xanax -) 2 mg PO ONCE ONE Stop: 02/24/19 14:22 Docusate Sodium (Colace -) 100 mg PO TID [facility] Last Admin: 02/25/19 06:48 Dose: 100 mg Furosemide (Lasix -) 20 mg PO DAILY [facility] Last Admin: 02/25/19 09:12 Dose: 20 mg Sodium Chloride (Normal Saline -) 1,000 mls @ 75 mls/hr IV ASDIR [facility] Last Admin: 02/24/19 23:02 Dose: 75 mls/hr Insulin Aspart (Novolog Vial Sliding Scale -) 1 vial SQ ACHS [facility]; Protocol Last Admin: 02/25/19 06:48 Dose: 2 units Ketorolac Tromethamine (Toradol Injection -) 15 mg IVPUSH Q6H PRN PRN Reason: PAIN LEVEL 1-5 Stop: 02/28/19 06:21 Last Admin: 02/25/19 09:12 Dose: 15 mg Losartan Potassium (Cozaar -) 50 mg PO DAILY [facility] Last Admin: 02/25/19 09:12 Dose: 50 mg Metoprolol Tartrate (Lopressor -) 50 mg PO DAILY [facility] Last Admin: 02/25/19 09:12 Dose: 50 mg Montelukast Sodium (Singulair -) 10 mg PO HS [facility] Last Admin: 02/24/19 21:38 Dose: 10 mg Non-Formulary Medication (Topiramate [Trokendi Xr]) 100 mg PO BID [facility] Ondansetron HCl (Zofran Odt -) 4 mg SL Q6H PRN PRN Reason: NAUSEA AND/OR VOMITING Pantoprazole Sodium (Protonix -) 40 mg PO DAILY [facility] Last Admin: 02/25/19 09:12 Dose: 40 mg - Objective Vital Signs: Vital Signs Temperature 98.2 F 02/25/19 06:59 Pulse Rate 66 02/25/19 06:59 Respiratory Rate 18 02/25/19 06:59 Blood Pressure 146/68 02/25/19 06:59 O2 Sat by Pulse Oximetry (%) 96 02/24/19 21:00 Constitutional: Yes: No Distress, Calm Eyes: Yes: Conjunctiva Clear HENT: Yes: Atraumatic Cardiovascular: Yes: Regular Rate and Rhythm Respiratory: Yes: Regular, CTA Bilaterally Gastrointestinal: Yes: Normal Bowel Sounds, Soft, Tenderness (RLQ) Musculoskeletal: Yes: WNL Extremities: Yes: WNL Edema: No Neurological: Yes: Alert, Oriented Psychiatric: Yes: Alert, Oriented Labs: CBC, BMP 02/24/19 06:01 02/24/19 06:01 Microbiology 02/22/19 20:15 Urine Culture - Final Urine - Urine Clean Catch NO GROWTH OBTAINED - ....Imaging Cat Scan: Report Reviewed Ultrasound: Report Reviewed Problem List - Problems (1) DMII (diabetes mellitus, type 2) Assessment/Plan: -BGM ACHS -ISS -diabetic/low Na diet -HgA1c 8.4% Code(s): E11.9 - TYPE 2 DIABETES MELLITUS WITHOUT COMPLICATIONS (2) HTN (hypertension) Assessment/Plan: -Losartan -low Na diet Code(s): I10 - ESSENTIAL (PRIMARY) HYPERTENSION (3) Intractable abdominal pain Assessment/Plan: -IV hydration -pain control -Abd/Pelvic CT scan shows diffuse fatty liver infiltration with no evidence of acute pathology within abdomen or pelvis -Bladder US shows normal pelvic sonogram -pending abdomen and pelvic MRI -GI and surgery consult -UA and UC neg Code(s): R10.9 - UNSPECIFIED ABDOMINAL PAIN Assessment/Plan see problem list dvt ppx
[2019-02-25] MEDS ORDERED: INSULIN (NOVOLOG) ASPART 100 UNITS/ML 10ML VIAL ONE ×2 (11:28→16:31)
[2019-02-25] MEDS: SODIUM CHLORIDE 1,000 ML IV SCH (12:22)
[2019-02-25] MEDS ORDERED: PT OWN MED DRAWER 7, Y5N ONE (14:08)
--- NOTE | 2019-02-25 14:08 | CON.GI ---
Consult Consult Specialty:: Gastroenterology Reason for Consultation:: Abdominal pain - History of Present Illness Chief Complaint: Abdominal pain History of Present Illness: 68yo female h/o DM, cholecystectomy, tubal ligation presents with worsening lower abdominal pain X 5-6 months. Pt reports intermittent lower abdominal pain over the past 5-6 months of varying severity. Describes sharp pain mostly in suprapubic region with radiation towards vagina, right side/flank and towards the back. States she has had similar presentations previously without obvious etiology found. Denies dysphagia, n/v, fever/chills. Reports longstanding mild constipation, moves bowels every 1-2 days, denies blood. Denies vaginal bleeding. Reports poor appetite, states she has lost approximately 20lbs over the past 5-6 months. Eating lunch on my evaluation. Pt reports colonoscopy 1-2 years ago per pt at outside facility ?polyps found. No known family h/o GI malignancy. 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 Cardio/Vascular: Yes: HTN, Hyperlipdemia Pulmonary: Yes: Asthma Gastrointestinal: Yes: Constipation, GERD ...: No Musculoskeletal: Yes: Chronic low back pain, Osteoarthritis Endocrine: Yes: Diabetes Mellitus - Alcohol/Substance Use Hx Alcohol Use: No (social) History of Substance Use: reports: None - Smoking History Smoking history: Former smoker Have you smoked in the past 12 months: No If you are a former smoker, when did you quit?: 1960 Home Medications - Allergies Allergies/Adverse Reactions: Allergies Allergy/AdvReac Type Severity Reaction Status Date / Time No Known Allergies Allergy Verified 02/22/19 16:32 - Home Medications Home Medications: Ambulatory Orders Losartan Potassium 50 mg PO DAILY 03/20/15 Alprazolam [Xanax] 1 mg PO TID #90 tablet MDD 3 06/29/16 Furosemide [Lasix -] 20 mg PO DAILY #30 tablet 06/29/16 Metoprolol Tartrate 50 mg PO DAILY #0 06/29/16 Topiramate [Trokendi Xr] 100 mg PO BID #0 06/29/16 Esomeprazole Magnesium [Nexium 24Hr] 40 mg PO PCHS 04/23/18 Insulin Degludec [Tresiba Flextouch U-100] 100 unit SQ DAILY 04/23/18 Liraglutide [Victoza -] 0.6 mg SQ DAILY@0700 04/23/18 Losartan Potassium [Cozaar -] 50 mg PO DAILY 04/23/18 Montelukast Sodium [Singulair] 10 mg PO DAILY 04/23/18 Naloxegol Oxalate [Movantik] 25 mg PO DAILY 04/23/18 Ondansetron [Zofran -] 4 mg PO BID #8 tablet 04/23/18 Oxybutynin Chloride [Ditropan -] 5 mg PO DAILY 04/23/18 metFORMIN XR [Glucophage *Xr* -] 500 mg PO BID 04/23/18 Family Disease History - Family Disease History Family Disease History: Heart Disease: Father (HTN), Mother (CVA), Other: Father , Mother Review of Systems - Review of Systems Constitutional: reports: Unintentional Wgt. Loss Neck: reports: No Symptoms Cardiovascular: reports: No Symptoms Respiratory: reports: No Symptoms Gastrointestinal: reports: Abdominal Pain Physical Exam-GI Vital Signs: Vital Signs Temperature 98.6 F 02/25/19 10:00 Pulse Rate 73 02/25/19 10:00 Respiratory Rate 18 02/25/19 10:00 Blood Pressure 150/73 02/25/19 10:00 O2 Sat by Pulse Oximetry (%) 96 02/24/19 21:00 Constitutional: Yes: Well Nourished, No Distress, Calm Cardiovascular: Yes: WNL, Regular Rate and Rhythm Respiratory: Yes: WNL, Regular, CTA Bilaterally ...Palpate: Yes: Other (Abd soft, tender on palpation in suprapubic/RLQ, non distended, no rebound, guarding or rigidity) Labs: CBC, BMP 02/24/19 06:01 02/24/19 06:01 Imaging - Results Cat Scan: Report Reviewed, Image Reviewed Problem List - Problems (1) Lower abdominal pain Assessment/Plan: 68yo female h/o cholecystectomy, tubal ligation presents with worsening lower abdominal pain (mostly suprapubic/RLQ) x 5-6 months with associated weight loss. Pelvic US without obvious abnormality. CT abd/pelvis revealing fatty liver otherwise no acute findings. Microcytic anemia noted with iron deficiency. Not consistent with pancreatitis. Exact etiology unclear though possibly urological vs gynecological vs component of constipation however need to exclude underlying malignancy in setting of worsening anemia and weight loss. -Await results of MRI abd/pelvis -Check ferritin -Diet as tolerated for now -Miralax daily -Pending above results, would consider colonoscopy/EGD for further evaluation Code(s): R10.30 - LOWER ABDOMINAL PAIN, UNSPECIFIED
[2019-02-25] MEDS: MONTELUKAST NA 10 MG TABLET PO SCH (21:58)
[2019-02-26] MEDS: ACETAMINOPHEN 325 MG TABLET (FP) PO PRN ×2 (01:56→05:04)
[2019-02-26] MEDS: KETOROLAC TROMETHAMINE 15 MG/ML VIAL IVPUSH PRN ×2 (01:57→11:09)
[2019-02-26] MEDS: DOCUSATE SODIUM 100 MG CAPSULE (FP) PO SCH ×2 (05:04→14:37)
[2019-02-26] MEDS: ALPRAZolam 0.25 MG TABLET PO SCH ×3 (05:04→21:29)
[2019-02-26] MEDS: INSULIN SLIDING SCALE (NOVOLOG) 1 VIAL SQ SCH ×4 (06:33→21:29)
[2019-02-26 07:58] LABS: HEMOGLOBIN 10.6 GM/dL (10.7-15.3); MCH 26.2 pg (25.7-33.7); MCHC 33.2 g/dl (32.0-36.0); MEAN CELL VOLUME 78.7 fl (80-96); MEAN PLT VOLUME 10.8 fl (7.5-11.1); PLATELET COUNT 187 K/MM3 (134-434); RBC 4.06 M/mm3 (3.60-5.2); RDW 15.5 % (11.6-15.6); WHITE BLOOD COUNT 9.6 K/mm3 (4.0-10.0)
[2019-02-26 08:01] LABS: BILIRUBIN,TOTAL 0.6 mg/dL (0.2-1); BLOOD UREA NITROGEN 12.4 mg/dL (7-18); CALCIUM 8.3 mg/dL (8.5-10.1); CREATININE 0.6 mg/dL (0.55-1.3); POTASSIUM 4.4 mmol/L (3.5-5.1); TOT PROT 6.4 g/dl (6.4-8.2)
--- NOTE | 2019-02-26 08:17 | CONSULT ---
Consult Consult Specialty:: urology Referred by:: Jose Juan Reason for Consultation:: pelvic pain - History of Present Illness Chief Complaint: pelvic pain History of Present Illness: Patient is a 68 year old female with 5 day history of intractable pelvic pain. The patient has a history of microscopic hematuria in the past and is s/p a cystoscopy about 2 months ago which was negative. The denies nausea, vomiting, gross hematuria, renal colic, fever, chills, diarrhea/constipation/gas/ hematochezia, trauma, dysuria, frequency, urgency, or new onset incontinence. 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, Vertigo Cardio/Vascular: Yes: HTN, Hyperlipdemia Pulmonary: Yes: Asthma Gastrointestinal: Yes: Constipation, GERD ...: No Musculoskeletal: Yes: Chronic low back pain, Osteoarthritis Endocrine: Yes: Diabetes Mellitus - Alcohol/Substance Use Hx Alcohol Use: No (social) History of Substance Use: reports: None - Smoking History Smoking history: Former smoker Have you smoked in the past 12 months: No If you are a former smoker, when did you quit?: 1960 Home Medications - Allergies Allergies/Adverse Reactions: Allergies Allergy/AdvReac Type Severity Reaction Status Date / Time No Known Allergies Allergy Verified 02/22/19 16:32 - Home Medications Home Medications: Ambulatory Orders Losartan Potassium 50 mg PO DAILY 03/20/15 Alprazolam [Xanax] 1 mg PO TID #90 tablet MDD 3 06/29/16 Furosemide [Lasix -] 20 mg PO DAILY #30 tablet 06/29/16 Metoprolol Tartrate 50 mg PO DAILY #0 06/29/16 Topiramate [Trokendi Xr] 100 mg PO BID #0 06/29/16 Esomeprazole Magnesium [Nexium 24Hr] 40 mg PO PCHS 04/23/18 Insulin Degludec [Tresiba Flextouch U-100] 100 unit SQ DAILY 04/23/18 Liraglutide [Victoza -] 0.6 mg SQ DAILY@0700 04/23/18 Losartan Potassium [Cozaar -] 50 mg PO DAILY 04/23/18 Montelukast Sodium [Singulair] 10 mg PO DAILY 04/23/18 Naloxegol Oxalate [Movantik] 25 mg PO DAILY 04/23/18 Ondansetron [Zofran -] 4 mg PO BID #8 tablet 04/23/18 Oxybutynin Chloride [Ditropan -] 5 mg PO DAILY 04/23/18 metFORMIN XR [Glucophage *Xr* -] 500 mg PO BID 04/23/18 Family Disease History - Family Disease History Family Disease History: Heart Disease: Father (HTN), Mother (CVA), Other: Father , Mother Physical Exam Vital Signs: Vital Signs Temperature 98.3 F 02/26/19 06:00 Pulse Rate 81 02/26/19 06:00 Respiratory Rate 18 02/26/19 06:00 Blood Pressure 140/62 02/26/19 06:00 O2 Sat by Pulse Oximetry (%) 94 L 02/25/19 21:00 Constitutional: Yes: Well Nourished, No Distress, Anxious Eyes: Yes: WNL, Conjunctiva Clear, EOM Intact HENT: Yes: WNL, Atraumatic, Normocephalic Neck: Yes: WNL, Supple, Trachea Midline Cardiovascular: Yes: WNL, Regular Rate and Rhythm Respiratory: Yes: WNL Gastrointestinal: Yes: Normal Bowel Sounds, Soft, Other (suprapubic tenderness on deep palpation) Renal/: Yes: WNL Labs: CBC, BMP 02/26/19 06:45 Imaging - Results Cat Scan: Report Reviewed Ultrasound: Report Reviewed (no evidence of bladder/renal/gynecologic/GI abnormality) Assessment/Plan imp pelvic pain history of microscopic hematuria plan urologically the patient has normal studies of her kidneys/bladder with a normal UA. patient is s/p a recent cystoscopy which was WNL no evidence of urologic pathology
--- NOTE | 2019-02-26 09:26 | PN ---
Progress Note, Physician - Current Medication List Current Medications: Active Medications Acetaminophen (Tylenol -) 650 mg PO Q4H PRN PRN Reason: PAIN LEVEL 1-5 Last Admin: 02/26/19 05:04 Dose: 650 mg Alprazolam (Xanax -) 1 mg PO TID [facility] Last Admin: 02/26/19 05:04 Dose: 1 mg Alprazolam (Xanax -) 2 mg PO ONCE ONE Stop: 02/24/19 14:22 Docusate Sodium (Colace -) 100 mg PO TID [facility] Last Admin: 02/26/19 05:04 Dose: 100 mg Furosemide (Lasix -) 20 mg PO DAILY [facility] Last Admin: 02/25/19 09:12 Dose: 20 mg Sodium Chloride (Normal Saline -) 1,000 mls @ 75 mls/hr IV ASDIR [facility] Last Admin: 02/25/19 12:22 Dose: 75 mls/hr Insulin Aspart (Novolog Vial Sliding Scale -) 1 vial SQ ACHS [facility]; Protocol Last Admin: 02/26/19 06:33 Dose: 4 units Ketorolac Tromethamine (Toradol Injection -) 15 mg IVPUSH Q6H PRN PRN Reason: PAIN LEVEL 1-5 Stop: 02/28/19 06:21 Last Admin: 02/26/19 01:57 Dose: 15 mg Losartan Potassium (Cozaar -) 50 mg PO DAILY [facility] Last Admin: 02/25/19 09:12 Dose: 50 mg Metoprolol Tartrate (Lopressor -) 50 mg PO DAILY [facility] Last Admin: 02/25/19 09:12 Dose: 50 mg Montelukast Sodium (Singulair -) 10 mg PO HS [facility] Last Admin: 02/25/19 21:58 Dose: 10 mg Non-Formulary Medication (Topiramate [Trokendi Xr]) 100 mg PO BID [facility] Ondansetron HCl (Zofran Odt -) 4 mg SL Q6H PRN PRN Reason: NAUSEA AND/OR VOMITING Last Admin: 02/26/19 01:56 Dose: 4 mg Pantoprazole Sodium (Protonix -) 40 mg PO DAILY [facility] Last Admin: 02/25/19 09:12 Dose: 40 mg - Objective Vital Signs: Vital Signs Temperature 98.3 F 02/26/19 06:00 Pulse Rate 81 02/26/19 06:00 Respiratory Rate 18 06/18/19 06:00 Blood Pressure 140/62 02/26/19 06:00 O2 Sat by Pulse Oximetry (%) 94 L 02/25/19 21:00 Cardiovascular: Yes: Regular Rate and Rhythm Respiratory: Yes: Regular, CTA Bilaterally Gastrointestinal: Yes: Normal Bowel Sounds, Soft, Tenderness (suprapubic) Labs: CBC, BMP 02/26/19 06:45 02/26/19 06:45 Problem List - Problems (1) Lower abdominal pain Assessment/Plan: -IV hydration -pain control -Abd/Pelvic CT scan shows diffuse fatty liver infiltration with no evidence of acute pathology within abdomen or pelvis -Bladder US shows normal pelvic sonogram -pending abdomen and pelvic MRI -GI and surgery consult -UA and UC neg Code(s): R10.30 - LOWER ABDOMINAL PAIN, UNSPECIFIED (2) DMII (diabetes mellitus, type 2) Assessment/Plan: -BGM ACHS -ISS -diabetic/low Na diet -HgA1c 8.4% Code(s): E11.9 - TYPE 2 DIABETES MELLITUS WITHOUT COMPLICATIONS (3) HTN (hypertension) Assessment/Plan: -Losartan -low Na diet Code(s): I10 - ESSENTIAL (PRIMARY) HYPERTENSION
[2019-02-26] MEDS: FUROSEMIDE 20 MG TABLET (FP) PO SCH (11:08)
[2019-02-26] MEDS: PANTOPRAZOLE 40 MG TABLET (FP) PO SCH (11:08)
[2019-02-26] MEDS: METOPROLOL TARTRATE 50 MG TABLET (FP) PO SCH (11:08)
[2019-02-26] MEDS: LOSARTAN POTASSIUM 50 MG TABLET (FP) PO SCH (11:09)
[2019-02-26] MEDS: HEPARIN NA (PORCINE) 5,000 UNITS/ML 1ML VIAL SQ SCH ×2 (11:09→21:29)
[2019-02-26] MEDS ORDERED: INSULIN (NOVOLOG) ASPART 100 UNITS/ML 10ML VIAL ONE (11:29)
[2019-02-26] MEDS: SODIUM CHLORIDE 1,000 ML IV SCH (16:19)
--- NOTE | 2019-02-26 17:08 | PN.GI ---
GI Progress Note Subjective: + pelvic pain + constipation States having had colonoscopy and upper endoscopy [address] Malathi Lewis. Describes a polyp being removed and being told of a hiatal hernia. 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 Jovi Arriaga in [place]. Continued pelvic pain. Had BM today. MRI of A/P not approved by Dr. Retana upon review of current and previous radiology tests. - Objective Vital Signs: Vital Signs Temperature 98.8 F 02/26/19 15:00 Pulse Rate 57 L 02/26/19 15:00 Respiratory Rate 20 02/26/19 15:00 Blood Pressure 123/53 L 02/26/19 15:00 O2 Sat by Pulse Oximetry (%) 94 L 02/25/19 21:00 Constitutional: Calm Eyes: No: Sclera Icterus Cardiovascular: Yes: Regular Rate and Rhythm Respiratory: Yes: CTA Bilaterally Gastrointestinal Inspection: Yes: Scars (+ horizontal pelvic surgical scar, + right pelvic surgical scar, + trochar scars) ...Auscultate: Yes: Normoactive Bowel Sounds ...Palpate: Yes: Soft, Tenderness (TTP along lower pelvis, along surgical scars) . No: Guarding, Hepatomegaly, Splenomegaly, Tenderness, Rebound ...Percussion: No: Tympanitic ...Rectal Exam: Yes: Other (Outpatient Phlebotomist present: No external lesions, no masses, no fecal impaction, scant light brown stool, guaiac negative) Edema: No (No LE edema) Neurological: Yes: Alert Labs: CBC, BMP 02/26/19 06:45 02/26/19 06:45 Problem List - Problems (1) Pelvic pain Assessment/Plan: Continued pelvic pain. ? secondary to adhesions from prior surgeries. 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 Guaiac negative on exam without evidence of fecal impaction. MRI of pelvis was approved after discussion with Dr. Retana, [facility]. Added MiraLAX 17g PO daily Other recommendations pending results of MRI Code(s): R10.2 - PELVIC AND PERINEAL PAIN
[2019-02-26] MEDS ORDERED: ALPRAZolam 0.25 MG TABLET PO ONE (18:32)
[2019-02-26] MEDS ORDERED: INSULIN (LEVEMIR) 100 UNITS/ML UNITS SQ ONE (21:15)
[2019-02-26] MEDS: TOPIRAMATE 100 MG TABLET PO SCH (21:29)
[2019-02-26] MEDS: MONTELUKAST NA 10 MG TABLET PO SCH (21:29)
[2019-02-27] MEDS: ACETAMINOPHEN 325 MG TABLET (FP) PO PRN (05:42)
[2019-02-27] MEDS: ALPRAZolam 0.25 MG TABLET PO SCH ×3 (05:52→21:34)
[2019-02-27] MEDS: INSULIN SLIDING SCALE (NOVOLOG) 1 VIAL SQ SCH ×4 (06:12→21:33)
[2019-02-27] MEDS: SODIUM CHLORIDE 1,000 ML IV SCH ×3 (07:00→23:00)
[2019-02-27] MEDS: LOSARTAN POTASSIUM 50 MG TABLET (FP) PO SCH (09:32)
[2019-02-27] MEDS: PANTOPRAZOLE 40 MG TABLET (FP) PO SCH (09:32)
[2019-02-27] MEDS: FUROSEMIDE 20 MG TABLET (FP) PO SCH (09:32)
[2019-02-27] MEDS: METOPROLOL TARTRATE 50 MG TABLET (FP) PO SCH (09:32)
[2019-02-27] MEDS: TOPIRAMATE 100 MG TABLET PO SCH ×2 (09:32→21:59)
[2019-02-27] MEDS: HEPARIN NA (PORCINE) 5,000 UNITS/ML 1ML VIAL SQ SCH ×2 (09:32→21:33)
[2019-02-27] MEDS: POLYETHYLENE GLYCOL 3350 119 GM BTL PO SCH (09:33)
--- NOTE | 2019-02-27 10:07 | PN.GI ---
GI Progress Note Subjective: Pt seen/examined at bedside, still with lower abdominal/pelvic pain with radiation towards vagina. Appetite better, asking for more food. Denies n/v. Moving bowels, had mostly formed bm today, no blood. - Objective Vital Signs: Vital Signs Temperature 97.3 F L 02/27/19 06:00 Pulse Rate 55 L 02/27/19 06:00 Respiratory Rate 20 02/27/19 06:00 Blood Pressure 104/46 L 02/27/19 06:00 O2 Sat by Pulse Oximetry (%) 96 02/26/19 21:00 Constitutional: Well Nourished, No Distress, Calm Cardiovascular: Yes: WNL, Regular Rate and Rhythm Respiratory: Yes: WNL, Regular, CTA Bilaterally ...Palpate: Yes: Other (Abd soft, tender on palpation in suprapubic region, non distended, no rebound, guarding or rigdity) Labs: CBC, BMP 02/26/19 06:45 02/26/19 06:45 Problem List - Problems (1) Lower abdominal pain Assessment/Plan: 68yo female h/o cholecystectomy, tubal ligation with lower abdominal pain ( mostly suprapubic/RLQ) x 5-6 months with associated weight loss and iron deficiency anemia. Pelvic US and CT abd/pelvis without obvious explanation for symptoms. Reported EGD/colonoscopy in 2018 (findings unclear ?polyps, report not available). Urology workup unremarkable. -Continue supportive measures -Miralax daily -Clear liquid diet for now -Await MRI pelvis results/report, unable to reach Dr. Retana to discuss -Pending results consider gynecology evaluation -If no obvious abnormalities, would recommend colonoscopy/EGD for further evaluation in view of new evidence of iron deficiency with associated weight loss despite negative fobt Discussed with medicine team Code(s): R10.30 - LOWER ABDOMINAL PAIN, UNSPECIFIED
--- NOTE | 2019-02-27 11:34 | PN ---
Progress Note, Physician Chief Complaint: abdominal pain History of Present Illness: Mild Suprapubic tenderness on palpation MRI abd results pending - Current Medication List Current Medications: Active Medications Acetaminophen (Tylenol -) 650 mg PO Q4H PRN PRN Reason: PAIN LEVEL 1-5 Last Admin: 02/27/19 05:42 Dose: 650 mg Alprazolam (Xanax -) 1 mg PO TID [facility] Last Admin: 02/27/19 05:52 Dose: 1 mg Furosemide (Lasix -) 20 mg PO DAILY [facility] Last Admin: 02/27/19 09:32 Dose: 20 mg Heparin Sodium (Porcine) (Heparin -) 5,000 unit SQ BID [facility] Last Admin: 02/27/19 09:32 Dose: 5,000 unit Sodium Chloride (Normal Saline -) 1,000 mls @ 75 mls/hr IV ASDIR [facility] Last Admin: 02/27/19 07:00 Dose: 75 mls/hr Insulin Aspart (Novolog Vial Sliding Scale -) 1 vial SQ ACHS [facility]; Protocol Last Admin: 02/27/19 06:12 Dose: Not Given Ketorolac Tromethamine (Toradol Injection -) 15 mg IVPUSH Q6H PRN PRN Reason: PAIN LEVEL 1-5 Stop: 02/28/19 06:21 Last Admin: 02/26/19 11:09 Dose: 15 mg Losartan Potassium (Cozaar -) 50 mg PO DAILY [facility] Last Admin: 02/27/19 09:32 Dose: 50 mg Metoprolol Tartrate (Lopressor -) 50 mg PO DAILY [facility] Last Admin: 02/27/19 09:32 Dose: 50 mg Montelukast Sodium (Singulair -) 10 mg PO HS [facility] Last Admin: 02/26/19 21:29 Dose: 10 mg Ondansetron HCl (Zofran Odt -) 4 mg SL Q6H PRN PRN Reason: NAUSEA AND/OR VOMITING Last Admin: 02/26/19 01:56 Dose: 4 mg Pantoprazole Sodium (Protonix -) 40 mg PO DAILY [facility] Last Admin: 02/27/19 09:32 Dose: 40 mg Polyethylene Glycol (Miralax (For Daily Use) -) 17 gm PO DAILY [facility] Last Admin: 02/27/19 09:33 Dose: 17 gm Topiramate (Topamax -) 100 mg PO BID [facility] Last Admin: 02/27/19 09:32 Dose: 100 mg - Objective Vital Signs: Vital Signs Temperature 97.6 F 02/27/19 10:47 Pulse Rate 55 L 02/27/19 10:47 Respiratory Rate 20 02/27/19 10:47 Blood Pressure 138/81 02/27/19 10:47 O2 Sat by Pulse Oximetry (%) 96 02/26/19 21:00 Constitutional: Yes: Well Nourished, No Distress, Calm Cardiovascular: Yes: Regular Rate and Rhythm Respiratory: Yes: Regular Gastrointestinal: Yes: Normal Bowel Sounds, Soft, Tenderness (Lower abdomen) Musculoskeletal: Yes: WNL Extremities: Yes: WNL Edema: No Peripheral Pulses WNL: Yes Neurological: Yes: Alert, Oriented Psychiatric: Yes: Alert, Oriented Labs: CBC, BMP 02/26/19 06:45 02/26/19 06:45 Assessment/Plan (1) DMII (diabetes mellitus, type 2) Assessment/Plan: -BGM ACHS -ISS -diabetic/low Na diet -HgA1c 8.4% Code(s): E11.9 - TYPE 2 DIABETES MELLITUS WITHOUT COMPLICATIONS (2) HTN (hypertension) Assessment/Plan: -Losartan -low Na diet Code(s): I10 - ESSENTIAL (PRIMARY) HYPERTENSION (3) Intractable abdominal pain Assessment/Plan: -IV hydration -pain control -Abd/Pelvic CT scan shows diffuse fatty liver infiltration with no evidence of acute pathology within abdomen or pelvis -Bladder US shows normal pelvic sonogram -pending abdomen and pelvic MRI -GI and surgery consult -UA and UC neg Code(s): R10.9 - UNSPECIFIED ABDOMINAL PAIN
[2019-02-27] MEDS ORDERED: PT OWN MED DRAWER 7, Y5N ONE (21:07)
[2019-02-27] MEDS: MONTELUKAST NA 10 MG TABLET PO SCH (21:33)
[2019-02-28] MEDS: KETOROLAC TROMETHAMINE 15 MG/ML VIAL IVPUSH PRN (03:11)
[2019-02-28] MEDS: ALPRAZolam 0.25 MG TABLET PO SCH (06:38)
[2019-02-28] MEDS: INSULIN SLIDING SCALE (NOVOLOG) 1 VIAL SQ SCH ×4 (06:40→22:12)
[2019-02-28] MEDS ORDERED: INSULIN (NOVOLOG) ASPART 100 UNITS/ML 10ML VIAL ONE ×2 (06:42→12:10)
[2019-02-28] MEDS ORDERED: INSULIN (LEVEMIR) 100 UNITS/ML UNITS SQ ONE (06:42)
[2019-02-28] MEDS ORDERED: ALPRAZolam 0.25 MG TABLET PO PRN ×2 (10:25→12:36)
[2019-02-28] MEDS ORDERED: BISACODYL 5 MG TABLET.DR (FP) PO ONE (12:00)
--- NOTE | 2019-02-28 12:36 | PN ---
Progress Note, Physician Chief Complaint: patient was seen in morning very somnolent but arousable and sleepy got toradol and xanax in morning now seen again a few hours later she is awake alert oriented x3 - Current Medication List Current Medications: Active Medications Acetaminophen (Tylenol -) 650 mg PO Q4H PRN PRN Reason: PAIN LEVEL 1-5 Last Admin: 02/27/19 05:42 Dose: 650 mg Alprazolam (Xanax -) 1 mg PO TID PRN PRN Reason: ANXIETY Heparin Sodium (Porcine) (Heparin -) 5,000 unit SQ BID [facility] Last Admin: 02/27/19 21:33 Dose: 5,000 unit Sodium Chloride (Normal Saline -) 1,000 mls @ 75 mls/hr IV ASDIR [facility] Last Admin: 02/27/19 23:00 Dose: Not Given Insulin Aspart (Novolog Vial Sliding Scale -) 1 vial SQ ACHS [facility]; Protocol Last Admin: 02/28/19 12:12 Dose: 4 units Losartan Potassium (Cozaar -) 50 mg PO DAILY [facility] Last Admin: 02/27/19 09:32 Dose: 50 mg Metoprolol Tartrate (Lopressor -) 25 mg PO DAILY [facility] Montelukast Sodium (Singulair -) 10 mg PO HS [facility] Last Admin: 02/27/19 21:33 Dose: 10 mg Ondansetron HCl (Zofran Odt -) 4 mg SL Q6H PRN PRN Reason: NAUSEA AND/OR VOMITING Last Admin: 02/26/19 01:56 Dose: 4 mg Pantoprazole Sodium (Protonix -) 40 mg PO DAILY [facility] Last Admin: 02/27/19 09:32 Dose: 40 mg Polyethylene Glycol (Miralax (For Daily Use) -) 17 gm PO DAILY [facility] Last Admin: 02/27/19 09:33 Dose: 17 gm Polyethylene Glycol/Electrolytes (Golytely Solution -) 4,000 ml PO ONCE ONE Stop: 02/28/19 13:01 Topiramate (Topamax -) 100 mg PO BID [facility] Last Admin: 02/27/19 21:59 Dose: 100 mg - Objective Vital Signs: Vital Signs Temperature 98.5 F 02/28/19 09:00 Pulse Rate 56 L 02/28/19 11:00 Respiratory Rate 18 02/28/19 11:00 Blood Pressure 144/70 02/28/19 11:00 O2 Sat by Pulse Oximetry (%) 96 02/27/19 21:00 Constitutional: Yes: Calm Cardiovascular: Yes: Regular Rate and Rhythm, S1, S2 Respiratory: Yes: CTA Bilaterally Gastrointestinal: Yes: Normal Bowel Sounds, Soft Edema: No Neurological: Yes: Alert, Oriented Labs: CBC, BMP 02/26/19 06:45 02/26/19 06:45 Problem List - Problems (1) Anxiety Assessment/Plan: el decrease xanax dose and make it prn given increase sedation in morning Code(s): F41.9 - ANXIETY DISORDER, UNSPECIFIED (2) DMII (diabetes mellitus, type 2) Assessment/Plan: sliding scale Code(s): E11.9 - TYPE 2 DIABETES MELLITUS WITHOUT COMPLICATIONS (3) Fibroid Assessment/Plan: manager gyn evaluation Code(s): D21.9 - BENIGN NEOPLASM OF CONNECTIVE AND OTHER SOFT TISSUE, UNSP (4) Anemia Assessment/Plan: iron panel bowel prep colonscopy in AM Code(s): D64.9 - ANEMIA, UNSPECIFIED
[2019-02-28] MEDS: HEPARIN NA (PORCINE) 5,000 UNITS/ML 1ML VIAL SQ SCH ×2 (12:38→21:48)
[2019-02-28] MEDS ORDERED: PEG 3350/NA SULF BICARB CL/KCL 4000 ML SOLN.RECON PO ONE (13:00)
[2019-02-28] MEDS: POLYETHYLENE GLYCOL 3350 119 GM BTL PO SCH (13:02)
[2019-02-28] MEDS: PANTOPRAZOLE 40 MG TABLET (FP) PO SCH (13:10)
[2019-02-28] MEDS: TOPIRAMATE 100 MG TABLET PO SCH ×2 (13:10→21:48)
[2019-02-28] MEDS: metoPROLOL SUCCINATE 25 MG TAB.SR.24H (FP) PO SCH (13:10)
[2019-02-28] MEDS: LOSARTAN POTASSIUM 50 MG TABLET (FP) PO SCH (13:10)
[2019-02-28] MEDS: FUROSEMIDE 20 MG TABLET (FP) PO SCH (13:56)
[2019-02-28] MEDS: METOPROLOL TARTRATE 50 MG TABLET (FP) PO SCH (13:57)
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
[2019-02-28 14:31] VITALS: BMI 28.1
--- NOTE | 2019-02-28 17:35 | PN.GI ---
GI Progress Note Subjective: Complains of epigastric pain, persistent pelvic pain. - Objective Vital Signs: Vital Signs Temperature 98.7 F 02/28/19 14:26 Pulse Rate 60 02/28/19 14:26 Respiratory Rate 18 02/28/19 14:26 Blood Pressure 165/91 02/28/19 14:26 O2 Sat by Pulse Oximetry (%) 96 02/27/19 21:00 Constitutional: Calm Eyes: No: Sclera Icterus Cardiovascular: Yes: Regular Rate and Rhythm Respiratory: Yes: CTA Bilaterally Gastrointestinal Inspection: Yes: Scars ...Auscultate: Yes: Normoactive Bowel Sounds ...Palpate: Yes: Tenderness (TTP epigastrium and lower abdomen / pelvis) ...Percussion: No: Tympanitic Edema: No (No LE edema) Neurological: Yes: Alert Labs: CBC, BMP 02/26/19 06:45 02/26/19 06:45 Problem List - Problems (1) Pelvic pain Assessment/Plan: epigastric pain as well. Discussed upper endoscopy and colonoscopy for further evaluation. Her was present at bedside. We discussed potential risks of the procedure like but not limited to bleeding, perforation requiring surgery to repair, infection, sedation medication effects all of which could be potentially life threatening. She has agreed to the procedures. Code(s): R10.2 - PELVIC AND PERINEAL PAIN
[2019-02-28] MEDS: SODIUM CHLORIDE 1,000 ML IV SCH (18:54)
[2019-02-28 18:58] LABS: BASO % 0.5 % (0-2.0); EOS % 5.7 % (0-4.5); HEMATOCRIT 35.5 % (32.4-45.2); HEMOGLOBIN 11.5 GM/dL (10.7-15.3); LYMPH % 42.3 % (8-40); MCH 25.7 pg (25.7-33.7); MCHC 32.3 g/dl (32.0-36.0); MEAN CELL VOLUME 79.7 fl (80-96); MEAN PLT VOLUME 10.5 fl (7.5-11.1); MONO % 7.7 % (3.8-10.2); NEUT % 43.8 % (42.8-82.8); PLATELET COUNT 248 K/MM3 (134-434); RBC 4.45 M/mm3 (3.60-5.2); RDW 15.9 % (11.6-15.6); WHITE BLOOD COUNT 6.8 K/mm3 (4.0-10.0)
[2019-02-28 19:29] LABS: ALBUMIN 3.9 g/dl (3.4-5.0); BILIRUBIN,TOTAL 0.8 mg/dL (0.2-1); BLOOD UREA NITROGEN 5.9 mg/dL (7-18); CALCIUM 9.4 mg/dL (8.5-10.1); CREATININE 0.8 mg/dL (0.55-1.3); POTASSIUM 4.8 mmol/L (3.5-5.1); TOT PROT 8.2 g/dl (6.4-8.2)
[2019-02-28] MEDS: MONTELUKAST NA 10 MG TABLET PO SCH (21:48)
[2019-03-01] MEDS: SODIUM CHLORIDE 1,000 ML IV SCH ×2 (03:16→08:09)
[2019-03-01] MEDS: ACETAMINOPHEN 325 MG TABLET (FP) PO PRN (03:18)
[2019-03-01] MEDS: INSULIN SLIDING SCALE (NOVOLOG) 1 VIAL SQ SCH ×2 (06:12→14:10)
[2019-03-01] MEDS ORDERED: INSULIN (NOVOLOG) ASPART 100 UNITS/ML 10ML VIAL ONE (07:53)
[2019-03-01] MEDS: LOSARTAN POTASSIUM 50 MG TABLET (FP) PO SCH (09:19)
[2019-03-01] MEDS: PANTOPRAZOLE 40 MG TABLET (FP) PO SCH (09:19)
[2019-03-01] MEDS: metoPROLOL SUCCINATE 25 MG TAB.SR.24H (FP) PO SCH (09:19)
[2019-03-01] MEDS: TOPIRAMATE 100 MG TABLET PO SCH (09:19)
[2019-03-01] MEDS: POLYETHYLENE GLYCOL 3350 119 GM BTL PO SCH (10:20)
[2019-03-01] MEDS: HEPARIN NA (PORCINE) 5,000 UNITS/ML 1ML VIAL SQ SCH (11:55)
--- NOTE | 2019-03-01 11:55 | PN ---
Progress Note (short form) - Note Progress Note: EGD/Colon complete. Report left in procedural section of physical chart and to be scanned into [facility]. No colon source of pelvic pain or anemia identified No Upper GI pain source identified Problem List - Problems (1) Pelvic pain Code(s): R10.2 - PELVIC AND PERINEAL PAIN
--- NOTE | 2019-03-01 14:45 | DS ---
Physical Examination Vital Signs: Vital Signs Temperature 98.6 F 03/01/19 13:00 Pulse Rate 53 L 03/01/19 13:00 Respiratory Rate 18 03/01/19 13:00 Blood Pressure 164/65 03/01/19 13:00 O2 Sat by Pulse Oximetry (%) 97 03/01/19 12:26 Constitutional: Yes: Calm Cardiovascular: Yes: Regular Rate and Rhythm, S1, S2 Respiratory: Yes: CTA Bilaterally Gastrointestinal: Yes: Normal Bowel Sounds, Soft Edema: No Neurological: Yes: Alert, Oriented Labs: CBC, BMP 02/28/19 18:00 02/28/19 18:00 Discharge Summary Reason For Visit: INTRACTABLE ABDOMINAL PAIN Current Active Problems Anemia (Acute) Anxiety (Acute) DMII (diabetes mellitus, type 2) (Acute) Fibroid (Acute) HTN (hypertension) (Acute) Intractable abdominal pain (Acute) Lower abdominal pain (Acute) Pelvic pain (Acute) Other Procedures: pelvic mri shows fibroid. EGD and coloscopy done Hospital Course: CHIEF COMPLAINT: lower abdominal pain PCP:Petr HISTORY OF PRESENT ILLNESS: 68yo woman with underlying anxiety presented to er c/o several weeks of vague abdominal pain located to suprabic area, no radiation. Reports difficulty passing urine- says she has desire to urinate but cannot. Recently underwent course of Keflex for uti. Reports some constipation- last BM -3days ago. ER course was notable for: (1) morphine (2) ketorolac patient seen by GI had egd/colonscopy done also seen by mica machine operator for pelvic mri fbroid noted to get further outpatient testing Condition: Guarded - Instructions Diet, Activity, Other Instructions: follow up with licensed clinical social worker on discharge follow up with PMD on discharge Referrals: Hannah Humphreys MD [Primary Care Provider] - 1 Week Disposition: HOME - Home Medications Comprehensive Discharge Medication List: Ambulatory Orders Losartan Potassium 50 mg PO DAILY 03/20/15 Alprazolam [Xanax] 1 mg PO TID #90 tablet MDD 3 06/29/16 Furosemide [Lasix -] 20 mg PO DAILY #30 tablet 06/29/16 Metoprolol Tartrate 50 mg PO DAILY #0 06/29/16 Topiramate [Trokendi Xr] 100 mg PO BID #0 06/29/16 Esomeprazole Magnesium [Nexium 24Hr] 40 mg PO [facility] 04/23/18 Insulin Degludec [Tresiba Flextouch U-100] 100 unit SQ DAILY 04/23/18 Liraglutide [Victoza -] 0.6 mg SQ DAILY@0700 04/23/18 Losartan Potassium [Cozaar -] 50 mg PO DAILY 04/23/18 Montelukast Sodium [Singulair] 10 mg PO DAILY 04/23/18 Naloxegol Oxalate [Movantik] 25 mg PO DAILY 04/23/18 Ondansetron [Zofran -] 4 mg PO BID #8 tablet 04/23/18 Oxybutynin Chloride [Ditropan -] 5 mg PO DAILY 04/23/18 metFORMIN XR [Glucophage *Xr* -] 500 mg PO BID 04/23/18
[2019-03-01 15:12] VITALS: BP 147/63; PULSE 58; TEMP 98.3
[2019-03-02 08:06] LABS: SERUM IRON SATURATION 10 % (15-55); TOTAL IRON BINDING CAPACITY 326 ug/dL (250-450); UIBC 294 ug/dL (118-369)
--- NOTE | 2019-03-04 17:09 | PATH ---
Surgical Pathology Report Patient Name: FEDERICA BARNES [facility]. Rec. #: [id number] /Age/Gender: 1950 (Age: 68) / F Account: [id number] Location: [address] [place] [address] Taken: 03/01/2019 Received: 03/01/2019 Reported: 03/04/2019 Physicians: Francis Barros D.O. Specimen(s) Received A: 2ND PORTION AND BULB OF DUODENUM B: BX CARDIA POLYP C: ANTRUM AND BODY Clinical History Abdominal pain, anemia, pelvic pain Postoperative diagnosis: Anemia, gastritis, gastric polyp, normal colon Final Diagnosis A. SECOND PORTION DUODENUM AND BULB, BIOPSY: DUODENUM MUCOSA WITH NO SIGNIFICANT PATHOLOGIC CHANGE. NO HISTOLOGIC EVIDENCE OF CELIAC DISEASE. B. CARDIA POLYP, BIOPSY: FUNDIC GLAND POLYP. IMMUNOSTAIN FOR H. PYLORI IS NEGATIVE. NEGATIVE INTESTINAL METAPLASIA. C. ANTRUM AND BODY, BIOPSY: GASTRIC MUCOSA WITH MILD CHRONIC GASTRITIS. IMMUNOSTAIN FOR H. PYLORI IS NEGATIVE. NEGATIVE FOR INTESTINAL METAPLASIA. Electronically Signed Gina Kiran M.D. Gross Description A. Received in formalin, labeled "second portion of duodenum and bulb" are 3 bentley, irregular portions of soft tissue ranging from 0.2-0.4 cm. in greatest dimension. The specimens are submitted in toto in one cassette. B. Received in formalin, labeled "polyp in cardia biopsy" are 2 bentley, irregular portions of soft tissue measuring 0.2 and 0.4 cm. in greatest dimension. The specimens are submitted in toto in one cassette. C. Received in formalin, labeled "antrum and body biopsy" are 2 bentley, irregular portions of soft tissue measuring 0.3 and 0.4 cm. in greatest dimension. The specimens are submitted in toto in one cassette. /03/01/2019 saudi03/01/2019
== END 2019-03-01 16:22 | disposition home or self-care (01) | DRG 392 ==
LOC: JER 16:24 → JERBED 22:38 → J5S 02-23 08:53
PROVIDERS: ADMIT Family Medicine; ATTEND Family Medicine
PROC: 0DB68ZX Excision of Stomach, Via Natural or Artificial Opening Endoscopic, Diagnostic (ICD-10-PCS; 2019-03-01)
PROC: 0DJD8ZZ Inspection of Lower Intestinal Tract, Via Natural or Artificial Opening Endoscopic (ICD-10-PCS; 2019-03-01)
PROC: 0DB98ZX Excision of Duodenum, Via Natural or Artificial Opening Endoscopic, Diagnostic (ICD-10-PCS; principal; 2019-03-01 11:00)
DX: R10.2 Pelvic and perineal pain (principal); I10 Essential (primary) hypertension; E11.9 Type 2 diabetes mellitus without complications; F41.9 Anxiety disorder, unspecified; R10.31 Right lower quadrant pain; G43.909 Migraine, unspecified, not intractable, without status migrainosus; E78.5 Hyperlipidemia, unspecified; N83.201 Unspecified ovarian cyst, right side; K21.9 Gastro-esophageal reflux disease without esophagitis; J44.9 Chronic obstructive pulmonary disease, unspecified; M54.5 Low back pain; J45.909 Unspecified asthma, uncomplicated; K76.0 Fatty (change of) liver, not elsewhere classified; K59.00 Constipation, unspecified; D25.9 Leiomyoma of uterus, unspecified; D64.9 Anemia, unspecified; D50.9 Iron deficiency anemia, unspecified; K29.70 Gastritis, unspecified, without bleeding; K63.5 Polyp of colon; K64.8 Other hemorrhoids; N83.202 Unspecified ovarian cyst, left side; K66.0 Peritoneal adhesions (postprocedural) (postinfection); Z86.73 Personal history of transient ischemic attack (TIA), and cerebral infarction without residual deficits; Z87.891 Personal history of nicotine dependence
CPT/HCPCS: 36415; 72196-TC; 74177-TC; 76856-TC; 80048; 80053; 80074; 81003; 82150; 82728; 82962; 83036; 83540; 83550; 83605; 83690; 85025; 85027; 86140; 86304; 87086; 88305-TC; 93005; 93010; 99281-25; 99283-25; A9579; J0131; J1644; J7030; Q0162

== ENCOUNTER 2019-09-09 16:48 | Emergency (ER) | payer OTHER ==
--- NOTE | 2019-09-09 16:59 | PDOC ---
Rapid Medical Evaluation Time Seen by Provider: 09/09/19 16:57 Medical Evaluation: Allergies Allergy/AdvReac Type Severity Reaction Status Date / Time No Known Allergies Allergy Verified 02/22/19 16:32 09/09/19 16:58 CC: right flank pain PE: b/l CVAT Orders: urine, CT Patient will proceed to ED for further evaluation. Discharge Disposition - Diagnosis Flank pain - Referrals Referrals: Hannah Humphreys MD [Primary Care Provider] - - Patient Instructions - Post Discharge Activity
[2019-09-09] MEDS ORDERED: KETOROLAC TROMETHAMINE 30 MG/1 ML VIAL IVPUSH ONE ×2 (17:00→21:05)
[2019-09-09] MEDS ORDERED: SODIUM CHLORIDE 1,000 ML IV STA (17:00)
[2019-09-09 17:02] VITALS: TEMP 97.9; BMI 24.7
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
[2019-09-09] MEDS ORDERED: KETOROLAC TROMETHAMINE 30 MG/1 ML VIAL ONE ×2 (17:32→21:43)
[2019-09-09] MEDS ORDERED: ACETAMINOPHEN 1000 MG/100 ML VIAL (NON FORMULARY) IVPB ONE (17:56)
[2019-09-09] MEDS ORDERED: ACETAMINOPHEN INJECTION 100 ML IVPB ONE (18:12)
--- NOTE | 2019-09-09 18:17 | PDOC ---
Documentation entered by Flo Bowman SCRIBE, acting as scribe for Bill Estrada MD. Bill Estrada MD: This documentation has been prepared by the Colby bolanos Nirvannie, SCRIBE, under my direction and personally reviewed by me in its entirety. I confirm that the documentation accurately reflects all work, treatment, procedures, and medical decision making performed by me. Attending Attestation - Resident Resident Name: MaralXiomaraDarlene - ED Attending Attestation I have performed the following: I have examined & evaluated the patient, The case was reviewed & discussed with the resident, I agree w/resident's findings & plan, Exceptions are as noted - HPI HPI: 09/09/19 18:16 CC: R Flank Pain. HPI: The patient is a 68 year old female, with a significant past medical history of HTN, HLD, DM, nephrolithiasis, and chronic pancreatitis, who presents to the emergency department with 3 days of sharp right flank pain similar to prior kidney stones with associated dysuria, hematuria, frequency, and difficulty voiding. She denies recent fevers or chills. Allergies: NKDA Primary Care Physician: Dr. Humphreys Urologist: Dr. Stone - Physicial Exam PE: 09/09/19 18:55 Vitals: Triage Vital signs reviewed General Appearance: No acute Distress, well nourished well developed, Cardiac: Regular rate and rhythym, no murmurs, no rubs, no gallops, Lungs: Clear to auscultation bilateral, good air movement bilaterally, Abdomen: Soft, non distended, normal bowel sounds, non tender to palpation Musculoskeletal: Reproducible right-sided flank discomfort no rash noted Extremities: Full range of motion to all extremities, no cyanosis, clubbing, or edema Skin: Warm and dry, no rashes or lesions, no rash, no petechiae Psych: Normal mood, normal affect - Medical Decision Making 09/09/19 18:56 69 years old but reproducible flank discomfort history of kidney stones We will check labs EKG [address] stone protocol IV Tylenol for meds observe and reassess Dr. Keith to follow up labs and reasses
[2019-09-09 18:34] LABS: BASO % 0.5 % (0-2.0); HEMATOCRIT 36.2 % (32.4-45.2); HEMOGLOBIN 11.6 GM/dL (10.7-15.3); LYMPH % 40.9 % (8-40); MCH 25.5 pg (25.7-33.7); MCHC 32.1 g/dl (32.0-36.0); MEAN CELL VOLUME 79.6 fl (80-96); MEAN PLT VOLUME 10.7 fl (7.5-11.1); MONO % 8.4 % (3.8-10.2); NEUT % 44.2 % (42.8-82.8); PLATELET COUNT 186 K/MM3 (134-434); RBC 4.54 M/mm3 (3.60-5.2); RDW 16.4 % (11.6-15.6); WHITE BLOOD COUNT 8.9 K/mm3 (4.0-10.0)
[2019-09-09 18:49] LABS: PH,URINE 6.5 (5.0-8.0); URINE APPEARANCE CLEAR; URINE BILIRUBIN NEGATIVE (NEGATIVE); URINE COLOR YELLOW; URINE GLUCOSE (UA) NEGATIVE (NEGATIVE); URINE KETONE NEGATIVE (NEGATIVE); URINE LEUK ESTERASE NEGATIVE (NEGATIVE); URINE NITRITE NEGATIVE (NEGATIVE); URINE PROTEIN NEGATIVE (NEGATIVE); URINE UROBILINOGEN 0.2 mg/dL (0.2-1.0)
[2019-09-09 19:06] LABS: ALBUMIN 3.4 g/dl (3.4-5.0); ALK PHOS 82 U/L (45-117); ANION GAP 7 MMOL/L (8-16); BILIRUBIN,TOTAL 0.6 mg/dL (0.2-1); BLOOD UREA NITROGEN 7.6 mg/dL (7-18); CALCIUM 9.4 mg/dL (8.5-10.1); CHLORIDE 104 mmol/L (98-107); CO2 28 mmol/L (21-32); CREATININE 0.7 mg/dL (0.55-1.3); GLUCOSE,RANDOM 173 mg/dL (74-106); LIPASE 132 U/L (73-393); POTASSIUM 4.4 mmol/L (3.5-5.1); SGOT/AST 28 U/L (15-37); SGPT/ALT 29 U/L (13-61); SODIUM 139 mmol/L (136-145); TOT PROT 7.4 g/dl (6.4-8.2)
--- NOTE | 2019-09-09 19:29 | PDOC ---
*Physical Exam - Vital Signs Last Vital Signs Temp Pulse Resp BP Pulse Ox 97.9 F 84 16 158/72 96 09/09/19 16:57 09/09/19 16:57 09/09/19 16:57 09/09/19 16:57 09/09/19 16:57 ED Treatment Course - LABORATORY CBC & Chemistry Diagram: 09/09/19 18:00 09/09/19 18:00 - ADDITIONAL ORDERS Additional order review: Laboratory Results 09/09/19 09/09/19 18:00 18:00 Sodium 139 Potassium 4.4 Chloride 104 Carbon Dioxide 28 Anion Gap 7 L BUN 7.6 Creatinine 0.7 Est GFR (CKD-EPI)AfAm 101.03 Est GFR (CKD-EPI)NonAf 87.17 Random Glucose 173 H Calcium 9.4 Total Bilirubin 0.6 AST 28 ALT 29 Alkaline Phosphatase 82 Troponin I < 0.02 Total Protein 7.4 Albumin 3.4 Lipase 132 Urine Color Yellow Urine Appearance Clear Urine pH 6.5 Ur Specific [place] 1.008 L Urine Protein Negative Urine Glucose (UA) Negative Urine Ketones Negative Urine Blood Negative Urine Nitrite Negative Urine Bilirubin Negative Urine Urobilinogen 0.2 Ur Leukocyte Esterase Negative 09/09/19 18:00 RBC 4.54 MCV 79.6 L MCHC 32.1 RDW 16.4 H MPV 10.7 Neutrophils % 44.2 Lymphocytes % 40.9 H Monocytes % 8.4 Eosinophils % 6.0 H Basophils % 0.5 - Medications Given in the ED: ED Medications Discontinued Medications Generic Name Dose Route Start Last Admin Trade Name Freq PRN Reason Stop Dose Admin Acetaminophen 1,000 mg 09/09/19 17:56 09/09/19 18:22 Ofirmev Injection - IVPB 09/09/19 17:57 1,000 mg ONCE ONE Administration Sodium Chloride 1,000 mls @ 1,000 mls/hr 09/09/19 17:00 09/09/19 18:22 Normal Saline - IV 09/09/19 17:59 1,000 mls/hr ASDIR STA Administration Ketorolac Tromethamine 30 mg 09/09/19 17:00 09/09/19 18:23 Toradol Injection - IVPUSH 09/09/19 17:01 Not Given ONCE ONE Medical Decision Making - Medical Decision Making 09/09/19 19:26 Sign out received from Dr Maral Crockett is a 69yo woman with a PMH of HTN, HLD, DM, chronic pancreatitis, nephrolithiasis who presented to the ED reporting 3 days of right flank pain as well as dysuria, hematuria, frequency, and sensation of incomplete voiding. ED course so far notable for: - UA negative - Labs unremarkable - IV acetaminophen given for pain - CT for evaluation of possible stone, ordered but not yet completed 09/09/19 21:12 - CT without significant change from 01/2019. Punctate stones b/l without hydro. Hepatic steatosis noted - Pt and family updated - Toradol for continued pain. Pt reports seeing pain management as an outpatient , was prescribed Percocet last week at a visit for the same symptoms as today. Advised patient that no additional opiates will be given today as she already sees a pain specialist. - Reassess after additional meds 09/09/19 21:52 - Continued but improved pain. Plan to d/c home to follow up with pain management - Advised pt regarding acetaminophen, ibuprofen, lidocaine at home for pain Discussed with Dr Inna Johnston PGY2 Discharge - Discharge Information Problems reviewed: Yes Clinical Impression/Diagnosis: Flank pain Chronic pain Qualifiers: Chronic pain type: other chronic pain Qualified Code(s): G89.29 - Other chronic pain Condition: Stable Disposition: HOME - Admission No - Additional Discharge Information Prescription Drug Monitoring Program (I-STOP) results: I-STOP not reviewed - Follow up/Referral Referrals: Hannah Humphreys MD [Primary Care Provider] - - Patient Discharge Instructions Patient Printed Discharge Instructions: DI for Flank Pain Additional Instructions: Discharge Instructions: You came into the ED for evaluation of flank pain. We performed a CT scan which did not show any large stones or blockage. Your lab work did not show any concerning abnormalities. Home Care and Follow Up: - You may use over the counter medications as needed for pain at home. 650- 1000mg acetaminophen (Tylenol) or 600mg ibuprofen (Motrin or Advil) can be used every 6-8 hours. If needed for continued pain, these medications may be alternated every 3-4 hours. For example, if you take ibuprofen at 9am, you may take acetaminophen at noon, ibuprofen at 3pm, etc. - It is strongly recommended that you take ibuprofen with food to help prevent stomach irritation. - You may buy a numbing patch that contains lidocaine (the patch is 4% lidocaine ) that can be placed over the areas of greatest pain. The lidocaine patch may be placed for 12 hours then removed for 12 hours. - Try using an ice pack for 20 minutes every hour or a heating pad for additional pain control. These should NOT be used over the lidocaine patch, but you may place them over the areas of pain while the patch is off. - Do not stop moving around. As much as you can tolerate, continue to do light exercise and stretching exercises. Increase your activity level as much as you can tolerate daily. - If your pain does not improve over the next week, please see your pain specialist. - Seek immediate medical care if you have significant worsening of your symptoms , can no long urinate, have high fevers over 103F, have chest pain, have shortness of breath, or any other new or concerning symptoms - Post Discharge Activity
[2019-09-09 22:09] VITALS: BP 146/86; PULSE 80
--- NOTE | 2019-09-10 10:26 | EKG ---
Test Reason : Blood Pressure : / mmHG Vent. Rate : 084 BPM Atrial Rate : 084 BPM P-R Int : 156 ms QRS Dur : 094 ms QT Int : 406 ms P-R-T Axes : 016 -23 -03 degrees QTc Int : 479 ms SINUS RHYTHM WITH OCCASIONAL PREMATURE VENTRICULAR COMPLEXES RSR' OR QR PATTERN IN V1 SUGGESTS RIGHT VENTRICULAR CONDUCTION DELAY BORDERLINE ECG Confirmed by MD Maria E, Darren ([id number]) on 09/10/2019 10:25:50 AM Referred By: Confirmed By:Darren Sanderson MD
== END 2019-09-09 22:09 | disposition home or self-care (01) ==
LOC: JER 16:48
PROC: 3E0337Z Introduction of Electrolytic and Water Balance Substance into Peripheral Vein, Percutaneous Approach (ICD-10-PCS; principal; 2019-09-09)
PROC: 3E033NZ Introduction of Analgesics, Hypnotics, Sedatives into Peripheral Vein, Percutaneous Approach (ICD-10-PCS; 2019-09-09)
PROC: 3E0333Z Introduction of Anti-inflammatory into Peripheral Vein, Percutaneous Approach (ICD-10-PCS; 2019-09-09)
DX: R10.30 Lower abdominal pain, unspecified (principal); G89.29 Other chronic pain; I10 Essential (primary) hypertension; E78.5 Hyperlipidemia, unspecified; E11.9 Type 2 diabetes mellitus without complications; Z79.4 Long term (current) use of insulin; K86.9 Disease of pancreas, unspecified; Z87.442 Personal history of urinary calculi; Z87.19 Personal history of other diseases of the digestive system; Z86.73 Personal history of transient ischemic attack (TIA), and cerebral infarction without residual deficits; Z98.51 Tubal ligation status
CPT/HCPCS: 36415; 74176-TC; 80053; 81003; 83690; 84484; 85025; 87086; 93005; 93010; 96361; 96374; 96375; 99283-25; J0131; J7030

== ENCOUNTER 2022-02-04 09:25 | Emergency (ER) | payer OTHER ==
[2022-02-04 09:47] VITALS: BMI 24.0
[2022-02-04] MEDS ORDERED: ASPIRIN 81 MG CHEWABLE TABLETS PO ONE (10:45)
[2022-02-04] MEDS ORDERED: ASPIRIN 81 MG CHEWABLE TABLETS ONE (10:59)
[2022-02-04 11:37] LABS: CHLORIDE 104 mmol/L (98-107); SODIUM 138 mmol/L (136-145)
[2022-02-04 11:38] LABS: CALCIUM 10.1 mg/dL (8.5-10.1)
[2022-02-04 11:39] LABS: ALBUMIN 3.7 g/dl (3.4-5.0); ANION GAP 7 MMOL/L (8-16); CO2 28 mmol/L (21-32); GLUCOSE,RANDOM 114 mg/dL (74-106); MAGNESIUM 2.3 mg/dL (1.8-2.4)
[2022-02-04 11:42] LABS: CREATININE 0.6 mg/dL (0.55-1.3); SGOT/AST 18 U/L (15-37); SGPT/ALT 25 U/L (13-61)
[2022-02-04 11:44] LABS: TOT PROT 7.7 g/dl (6.4-8.2)
[2022-02-04 11:45] LABS: ALK PHOS 78 U/L (45-117)
[2022-02-04 11:54] LABS: EOS % 2.9 % (0-4.5); HEMATOCRIT 38.7 % (32.4-45.2); HEMOGLOBIN 12.3 GM/dL (10.7-15.3); LYMPH % 31.2 % (8-40); MCH 25.6 pg (25.7-33.7); MCHC 31.7 g/dl (32.0-36.0); MEAN CELL VOLUME 80.8 fl (80-96); MEAN PLT VOLUME 11.1 fl (7.5-11.1); MONO % 8.2 % (3.8-10.2); NEUT % 56.7 % (42.8-82.8); PLATELET COUNT 226 10^3/uL (134-434); RBC 4.79 M/mm3 (3.60-5.2); RDW 15.2 % (11.6-15.6); WHITE BLOOD COUNT 11.2 K/mm3 (4.0-10.0)
[2022-02-04 12:41] VITALS: BP 166/92; PULSE 54; TEMP 97.5
== END 2022-02-04 12:42 | disposition home or self-care (01) ==
LOC: JER 09:25
DX: R20.2 Paresthesia of skin (principal)
CPT/HCPCS: 0241U-QW; 36415; 70450-TC; 71045-TC-FY; 80053; 82962; 83735; 84484; 85025; 93005; 93010; 99285-25

== ENCOUNTER 2022-02-21 04:03 | Emergency (ER) | payer OTHER ==
[2022-02-21 04:11] VITALS: BMI 27.4
[2022-02-21] MEDS ORDERED: ACETAMINOPHEN 1000 MG/100 ML BAG IVPB ONE (04:35)
[2022-02-21] MEDS ORDERED: ACETAMINOPHEN INJECTION 100 ML IVPB ONE (04:53)
[2022-02-21 04:59] LABS: BASO % 0.9 % (0-2.0); HEMOGLOBIN 11.3 GM/dL (10.7-15.3); LYMPH % 36.3 % (8-40); MCH 26.6 pg (25.7-33.7); MCHC 33.1 g/dl (32.0-36.0); MEAN CELL VOLUME 80.2 fl (80-96); MEAN PLT VOLUME 10.1 fl (7.5-11.1); MONO % 9.2 % (3.8-10.2); NEUT % 48.6 % (42.8-82.8); PLATELET COUNT 221 10^3/uL (134-434); RBC 4.24 M/mm3 (3.60-5.2); RDW 15.3 % (11.6-15.6); WHITE BLOOD COUNT 8.2 K/mm3 (4.0-10.0)
[2022-02-21] MEDS ORDERED: LORazepam 2 MG TABLET PO ONE (05:22)
[2022-02-21 05:25] LABS: CALCIUM 9.2 mg/dL (8.5-10.1)
[2022-02-21] MEDS ORDERED: LORazepam 1 MG TABLET ONE (05:25)
[2022-02-21 05:26] LABS: ALBUMIN 3.2 g/dl (3.4-5.0); BLOOD UREA NITROGEN 13.3 mg/dL (7-18)
[2022-02-21 05:29] LABS: CREATININE 0.8 mg/dL (0.55-1.3)
[2022-02-21 05:30] LABS: TOT PROT 7.4 g/dl (6.4-8.2)
[2022-02-21 05:31] LABS: BILIRUBIN,TOTAL 0.3 mg/dL (0.2-1)
[2022-02-21 06:58] VITALS: BP 143/68; PULSE 60; TEMP 97.7
== END 2022-02-21 10:28 | disposition home or self-care (01) ==
LOC: JER 04:03
PROC: 3E033GC Introduction of Other Therapeutic Substance into Peripheral Vein, Percutaneous Approach (ICD-10-PCS; principal; 2022-02-21)
DX: R07.9 Chest pain, unspecified (principal)
CPT/HCPCS: 36415; 71045-TC-FY; 80053; 84484; 85025; 93005; 93010; 99285-25

== ENCOUNTER 2022-09-13 13:46 | Emergency (ER) | payer OTHER ==
[2022-09-13 14:41] VITALS: BP 98/65; PULSE 62; RESP 20; TEMP 97.8; BMI 24.7
[2022-09-13] MEDS ORDERED: KETOROLAC TROMETHAMINE 15 MG/ML VIAL IVPUSH ONE (15:19)
[2022-09-13] MEDS ORDERED: METOCLOPRAMIDE HCL INJECTION 10 MG/2 ML VIAL IVPUSH ONE (15:19)
[2022-09-13] MEDS ORDERED: METOCLOPRAMIDE HCL INJECTION 10 MG/2 ML VIAL ONE (15:42)
[2022-09-13] MEDS ORDERED: KETOROLAC TROMETHAMINE 15 MG/ML VIAL ONE (15:42)
[2022-09-13 16:49] LABS: BASO % 0.4 % (0-2.0); EOS % 4.3 % (0-4.5); HEMATOCRIT 35.3 % (32.4-45.2); HEMOGLOBIN 11.2 GM/dL (10.7-15.3); LYMPH % 45.8 % (8-40); MCH 25.1 pg (25.7-33.7); MCHC 31.7 g/dl (32.0-36.0); MEAN CELL VOLUME 79.3 fl (80-96); MEAN PLT VOLUME 10.7 fl (7.5-11.1); MONO % 7.6 % (3.8-10.2); NEUT % 41.9 % (42.8-82.8); PLATELET COUNT 204 10^3/uL (134-434); RBC 4.45 M/mm3 (3.60-5.2); RDW 16.6 % (11.6-15.6)
[2022-09-13 17:09] LABS: CALCIUM 9.2 mg/dL (8.5-10.1)
[2022-09-13 17:10] LABS: ALBUMIN 3.5 g/dl (3.4-5.0); BLOOD UREA NITROGEN 4.4 mg/dL (7-18)
[2022-09-13 17:13] LABS: CREATININE 0.6 mg/dL (0.55-1.3)
[2022-09-13 17:15] LABS: BILIRUBIN,TOTAL 0.8 mg/dL (0.2-1)
[2022-09-13 17:43] LABS: ERYTHROCYTE SEDIMENTATION RATE 27 mm/hr (0-30)
== END 2022-09-13 20:52 | disposition home or self-care (01) ==
LOC: JER 13:46
PROC: 3E0333Z Introduction of Anti-inflammatory into Peripheral Vein, Percutaneous Approach (ICD-10-PCS; principal; 2022-09-13)
PROC: 3E033GC Introduction of Other Therapeutic Substance into Peripheral Vein, Percutaneous Approach (ICD-10-PCS; 2022-09-13)
DX: G43.009 Migraine without aura, not intractable, without status migrainosus (principal)
CPT/HCPCS: 36415; 70450-TC; 70486-TC; 80053; 85025; 85651; 86140; 96374; 96375; 99285-25

== ENCOUNTER 2023-01-04 09:44 | Observation (INO) | payer OTHER ==
[2023-01-04] MEDS ORDERED: ACETAMINOPHEN 1000 MG/100 ML BAG IVPB ONE (10:03)
[2023-01-04] MEDS ORDERED: ACETAMINOPHEN INJECTION 100 ML IVPB ONE (10:13)
[2023-01-04 10:20] VITALS: BMI 25.1
[2023-01-04 10:43] LABS: BASO % 0.7 % (0-2.0); LYMPH % 35.1 % (8-40); MCH 25.4 pg (25.7-33.7); MCHC 33.2 g/dl (32.0-36.0); MEAN CELL VOLUME 76.6 fl (80-96); MEAN PLT VOLUME 10.8 fl (7.5-11.1); MONO % 7.6 % (3.8-10.2); NEUT % 53.6 % (42.8-82.8); PLATELET COUNT 201 10^3/uL (134-434); RBC 4.71 M/mm3 (3.60-5.2); RDW 15.9 % (11.6-15.6); WHITE BLOOD COUNT 9.3 K/mm3 (4.0-10.0)
[2023-01-04 11:04] LABS: CALCIUM 9.4 mg/dL (8.5-10.1)
[2023-01-04 11:05] LABS: ALBUMIN 3.8 g/dl (3.4-5.0); BLOOD UREA NITROGEN 9.6 mg/dL (7-18); MAGNESIUM 1.9 mg/dL (1.8-2.4)
[2023-01-04 11:07] LABS: CREATININE 0.7 mg/dL (0.55-1.3)
[2023-01-04 11:09] LABS: TOT PROT 7.7 g/dl (6.4-8.2)
[2023-01-04] MEDS ORDERED: ACETAMINOPHEN 325 MG TABLET (FP) PO PRN (13:16)
[2023-01-04] MEDS ORDERED: ALPRAZolam 1 MG TABLET PO PRN (13:16)
[2023-01-04] MEDS ORDERED: PATIENT'S OWN MEDICATION (NON-FORMULARY) (Oxycodone Hcl/Acetaminophen [Endocet 10-325 Mg T PO SCH (14:00)
[2023-01-04 14:32] LABS: INR 1.1 (0.83-1.09); PROTHROMBIN TIME (PATIENT) 12.7 SEC (9.7-13.0)
[2023-01-04 14:35] LABS: ACTIVATED PTT 19.8 SECONDS (25.2-36.5)
[2023-01-04] MEDS ORDERED: GABAPENTIN 300 MG CAPSULE ONE (16:51)
[2023-01-04] MEDS ORDERED: oxyCODONE HCL 5 MG TABLET ONE (16:53)
[2023-01-04] MEDS ORDERED: ACETAMINOPHEN 325 MG TABLET (FP) ONE (16:54)
[2023-01-04] MEDS ORDERED: metFORMIN HCL 500 MG TABLET (FP) ONE (16:55)
[2023-01-04] MEDS: GABAPENTIN 300 MG CAPSULE PO SCH ×2 (17:04→21:29)
[2023-01-04] MEDS: oxyCODONE HCL 5 MG TABLET PO SCH ×2 (17:06→21:31)
[2023-01-04] MEDS: ACETAMINOPHEN 325 MG TABLET (FP) PO SCH ×2 (17:10→21:32)
[2023-01-04] MEDS: metFORMIN HCL 500 MG TABLET (FP) PO SCH (17:14)
[2023-01-04] MEDS: INSULIN (LEVEMIR) 100 UNITS/ML UNITS SQ SCH (21:28)
[2023-01-04] MEDS: ATORVASTATIN CA 10 MG TABLET (FP) PO SCH (21:29)
[2023-01-04] MEDS: MIRTAZAPINE 15 MG TABLET (FP) PO SCH (21:30)
[2023-01-04] MEDS: HEPARIN NA (PORCINE) 5,000 UNITS/ML 1ML VIAL SQ SCH (21:34)
[2023-01-05 04:41] VITALS: RESP 18
[2023-01-05] MEDS: GABAPENTIN 300 MG CAPSULE PO SCH ×3 (06:21→21:34)
[2023-01-05] MEDS: ACETAMINOPHEN 325 MG TABLET (FP) PO SCH ×3 (06:21→21:35)
[2023-01-05] MEDS: metFORMIN HCL 500 MG TABLET (FP) PO SCH ×3 (06:22→16:58)
[2023-01-05] MEDS: oxyCODONE HCL 5 MG TABLET PO SCH ×3 (06:22→21:34)
[2023-01-05] MEDS: INSULIN (LEVEMIR) 100 UNITS/ML UNITS SQ SCH ×2 (06:23→21:33)
[2023-01-05 08:19] LABS: BASO % 0.5 % (0-2.0); EOS % 4.5 % (0-4.5); HEMATOCRIT 32.8 % (32.4-45.2); HEMOGLOBIN 10.9 GM/dL (10.7-15.3); LYMPH % 38.6 % (8-40); MCH 25.5 pg (25.7-33.7); MCHC 33.3 g/dl (32.0-36.0); MEAN CELL VOLUME 76.5 fl (80-96); MEAN PLT VOLUME 11.6 fl (7.5-11.1); MONO % 8.5 % (3.8-10.2); NEUT % 47.9 % (42.8-82.8); PLATELET COUNT 170 10^3/uL (134-434); RBC 4.29 M/mm3 (3.60-5.2); RDW 15.4 % (11.6-15.6)
[2023-01-05 08:45] LABS: POTASSIUM 4.3 mmol/L (3.5-5.1)
[2023-01-05 08:55] LABS: ALBUMIN 3.2 g/dl (3.4-5.0); BLOOD UREA NITROGEN 8.1 mg/dL (7-18)
[2023-01-05 08:58] LABS: CREATININE 0.6 mg/dL (0.55-1.3)
[2023-01-05 08:59] LABS: TOT PROT 6.8 g/dl (6.4-8.2)
[2023-01-05] MEDS ORDERED: REGADENOSON 0.4 MG/5 ML PRE-FILLED SYRINGE IVPUSH ONE ×2 (09:27→09:45)
[2023-01-05] MEDS ORDERED: FUROSEMIDE 20 MG TABLET (FP) PO SCH ×2 (10:00)
[2023-01-05] MEDS ORDERED: FAMOTIDINE 20 MG TABLET PO SCH (10:00)
[2023-01-05] MEDS ORDERED: LOSARTAN 50MG/HCTZ 12.5MG 1 TAB PO SCH (10:00)
[2023-01-05] MEDS: HEPARIN NA (PORCINE) 5,000 UNITS/ML 1ML VIAL SQ SCH ×3 (12:22→22:00)
[2023-01-05] MEDS: MIRTAZAPINE 15 MG TABLET (FP) PO SCH (21:34)
[2023-01-05] MEDS: ATORVASTATIN CA 10 MG TABLET (FP) PO SCH (21:34)
[2023-01-06] MEDS: ACETAMINOPHEN 325 MG TABLET (FP) PO SCH (05:31)
[2023-01-06] MEDS: GABAPENTIN 300 MG CAPSULE PO SCH (05:31)
[2023-01-06] MEDS: oxyCODONE HCL 5 MG TABLET PO SCH (05:31)
[2023-01-06] MEDS: INSULIN (LEVEMIR) 100 UNITS/ML UNITS SQ SCH (06:06)
[2023-01-06] MEDS: metFORMIN HCL 500 MG TABLET (FP) PO SCH (06:06)
[2023-01-06 09:04] VITALS: BP 136/69; PULSE 80; TEMP 97.8
== END 2023-01-06 11:21 | disposition short-term general hospital (02) ==
LOC: JER 09:44 → JERBED 11:53 → J4W 20:19
PROVIDERS: ADMIT Family Medicine; ATTEND Family Medicine
PROC: 3E033NZ Introduction of Analgesics, Hypnotics, Sedatives into Peripheral Vein, Percutaneous Approach (ICD-10-PCS; principal; 2023-01-04)
PROC: 3E033GC Introduction of Other Therapeutic Substance into Peripheral Vein, Percutaneous Approach (ICD-10-PCS; 2023-01-04)
PROC: 3E033NZ Introduction of Analgesics, Hypnotics, Sedatives into Peripheral Vein, Percutaneous Approach (ICD-10-PCS; 2023-01-04)
DX: E11.9 Type 2 diabetes mellitus without complications (principal); I25.10 Atherosclerotic heart disease of native coronary artery without angina pectoris; I11.9 Hypertensive heart disease without heart failure; R42 Dizziness and giddiness; G43.909 Migraine, unspecified, not intractable, without status migrainosus; J45.909 Unspecified asthma, uncomplicated; K59.00 Constipation, unspecified; K21.9 Gastro-esophageal reflux disease without esophagitis; G89.29 Other chronic pain; Z87.891 Personal history of nicotine dependence; R55 Syncope and collapse
CPT/HCPCS: 36415; 70450-TC; 71046-TC-FY; 78452-TC; 80053; 80061; 82550; 82962; 83735; 84443; 84484; 85025; 85610; 85730; 93005; 93010; 93017; 93306-TC; 96374; 96375; 99285-25; A9502; C9803-CS; G0378; J1644; J2785; U0003; U0005

== ENCOUNTER 2023-08-18 08:29 | Emergency (ER) | payer OTHER ==
[2023-08-18 08:34] VITALS: RESP 18; TEMP 97.9; BMI 23.2
[2023-08-18] MEDS ORDERED: ACETAMINOPHEN 1000 MG/100 ML BAG IVPB ONE (09:14)
[2023-08-18] MEDS ORDERED: FAMOTIDINE 20 MG/50 ML IVPB 20 MG/50 ML MG IVPB ONE ×2 (09:14→09:29)
[2023-08-18] MEDS ORDERED: MAG HYDROX/AL HYDROX/SIMETH 30 ML UNIT-DOSE CUP PO ONE (09:14)
[2023-08-18] MEDS ORDERED: MAG HYDROX/AL HYDROX/SIMETH 30 ML UNIT-DOSE CUP ONE (09:28)
[2023-08-18] MEDS ORDERED: ACETAMINOPHEN INJECTION 100 ML IVPB ONE (09:28)
[2023-08-18 10:10] LABS: URINE APPEARANCE CLEAR; URINE BILIRUBIN NEGATIVE (NEGATIVE); URINE COLOR YELLOW; URINE GLUCOSE (UA) 3+ (NEGATIVE); URINE KETONE NEGATIVE (NEGATIVE); URINE LEUK ESTERASE NEGATIVE (NEGATIVE); URINE NITRITE NEGATIVE (NEGATIVE); URINE PROTEIN NEGATIVE (NEGATIVE)
[2023-08-18 10:45] LABS: BASO % 1.3 % (0-2.0); EOS % 5.8 % (0-4.5); HEMATOCRIT 34.9 % (32.4-45.2); HEMOGLOBIN 11.3 GM/dL (10.7-15.3); LYMPH % 38.7 % (8-40); MCH 25.7 pg (25.7-33.7); MCHC 32.2 g/dl (32.0-36.0); MEAN CELL VOLUME 79.7 fl (80-96); MEAN PLT VOLUME 10.6 fl (7.5-11.1); MONO % 8.4 % (3.8-10.2); NEUT % 45.8 % (42.8-82.8); PLATELET COUNT 229 10^3/uL (134-434); RBC 4.38 M/mm3 (3.60-5.2); RDW 15.8 % (11.6-15.6); WHITE BLOOD COUNT 10.6 K/mm3 (4.0-10.0)
[2023-08-18 10:46] LABS: INR 1.1 (0.83-1.09); PROTHROMBIN TIME (PATIENT) 12.7 SEC (9.7-13.0)
[2023-08-18 10:49] LABS: ACTIVATED PTT 30.7 SECONDS (25.2-36.5)
[2023-08-18 10:59] LABS: POTASSIUM 4.6 mmol/L (3.5-5.1)
[2023-08-18 11:01] LABS: CALCIUM 9.3 mg/dL (8.5-10.1)
[2023-08-18 11:02] LABS: ALBUMIN 3.4 g/dl (3.4-5.0); BLOOD UREA NITROGEN 14.6 mg/dL (7-18)
[2023-08-18 11:05] LABS: CREATININE 0.8 mg/dL (0.55-1.3)
[2023-08-18 11:06] LABS: BILIRUBIN,TOTAL 0.5 mg/dL (0.2-1); TOT PROT 7.5 g/dl (6.4-8.2)
[2023-08-18] MEDS ORDERED: LIDOCAINE 5% TOPICAL PATCH TP ONE (11:55)
[2023-08-18] MEDS ORDERED: LIDOCAINE 4% PATCH TP ONE ×2 (12:31→12:33)
[2023-08-18 12:44] VITALS: BP 138/64; PULSE 52
[2023-08-18] MEDS ORDERED: LIDOCAINE PATCH REMOVAL MC SCH ×2 (22:00)
== END 2023-08-18 13:05 | disposition home or self-care (01) ==
LOC: JER 08:29
PROC: 3E033GC Introduction of Other Therapeutic Substance into Peripheral Vein, Percutaneous Approach (ICD-10-PCS; principal; 2023-08-18)
PROC: 3E033NZ Introduction of Analgesics, Hypnotics, Sedatives into Peripheral Vein, Percutaneous Approach (ICD-10-PCS; 2023-08-18)
DX: R10.13 Epigastric pain (principal); R19.7 Diarrhea, unspecified; R07.9 Chest pain, unspecified; K86.89 Other specified diseases of pancreas; Z20.822 Contact with and (suspected) exposure to COVID-19
CPT/HCPCS: 0241U-QW; 36415; 71045-TC-FY; 71250-TC; 80053; 81003; 83690; 83735; 84484; 85025; 85610; 85730; 87086; 93005; 93010; 96365; 96375; 99285-25

== ENCOUNTER 2023-10-17 11:16 | Day surgery (SDC) | payer OTHER ==
[2023-10-17] MEDS: IRON SUCROSE COMPLEX 200 MG in SODIUM CHLORIDE 100 ML IVPB ONE (11:55)
[2023-10-17] MEDS: CYANOCOBALAMIN (VITAMIN B-12) 1000 MCG/1 ML VIAL IM ONE (12:28)
[2023-10-17 16:07] VITALS: BP 108/52; PULSE 62; RESP 18; TEMP 98.2
== END 2023-10-17 12:55 | disposition home or self-care (01) ==
LOC: JONCNONCHE 11:16 → J7W 11:17 → JONCNONCHE 12:55
PROVIDERS: ATTEND Internal Medicine Hematology & Oncology
PROC: 3E033GC Introduction of Other Therapeutic Substance into Peripheral Vein, Percutaneous Approach (ICD-10-PCS; principal; 2023-10-17)
DX: E61.1 Iron deficiency (principal)
CPT/HCPCS: 96365

== ENCOUNTER 2023-10-26 11:17 | Day surgery (SDC) | payer OTHER ==
[~2023-10-26 11:17] MED LIST: CYANOCOBALAMIN (VITAMIN B-12) 1000 MCG/1 ML VIAL IM ONE; IRON SUCROSE INJECTION 200 MG in SODIUM CHLORIDE 100 ML IVPB ONE
[2023-10-26] MEDS: IRON SUCROSE COMPLEX 200 MG in SODIUM CHLORIDE 100 ML IVPB ONE (12:06)
[2023-10-26] MEDS: CYANOCOBALAMIN (VITAMIN B-12) 1000 MCG/1 ML VIAL IM ONE (12:41)
[2023-10-26 18:48] VITALS: RESP 18; TEMP 98.3
[2023-10-26 18:50] VITALS: BP 123/41; PULSE 60
== END 2023-10-26 13:05 | disposition home or self-care (01) ==
LOC: J7W 11:17 → JONCNONCHE 11:17
PROVIDERS: ATTEND Internal Medicine Hematology & Oncology
PROC: 3E033GC Introduction of Other Therapeutic Substance into Peripheral Vein, Percutaneous Approach (ICD-10-PCS; principal; 2023-10-26)
DX: E61.1 Iron deficiency (principal)
CPT/HCPCS: 96365

== ENCOUNTER 2023-10-31 11:47 | Day surgery (SDC) | payer OTHER ==
[2023-10-31] MEDS: CYANOCOBALAMIN (VITAMIN B-12) 1000 MCG/1 ML VIAL IM ONE (12:54)
[2023-10-31] MEDS: IRON SUCROSE INJECTION 200 MG in SODIUM CHLORIDE 100 ML IVPB ONE (12:55)
[2023-10-31 16:10] VITALS: BP 108/49; PULSE 54; RESP 18; TEMP 97.9
== END 2023-10-31 14:00 | disposition home or self-care (01) ==
LOC: JONCNONCHE 11:47 → J7W 11:48 → JONCNONCHE 14:00
PROVIDERS: ATTEND Internal Medicine Hematology & Oncology
PROC: 3E033GC Introduction of Other Therapeutic Substance into Peripheral Vein, Percutaneous Approach (ICD-10-PCS; principal; 2023-10-31)
DX: D50.9 Iron deficiency anemia, unspecified (principal)
CPT/HCPCS: 96365; J1756

== ENCOUNTER 2023-11-09 14:00 | Day surgery (SDC) | payer OTHER ==
[2023-11-09] MEDS: CYANOCOBALAMIN (VITAMIN B-12) 1000 MCG/1 ML VIAL IM ONE (14:10)
[2023-11-09] MEDS: IRON SUCROSE COMPLEX 200 MG in SODIUM CHLORIDE 100 ML IVPB ONE (14:10)
[2023-11-09 16:53] VITALS: RESP 16; TEMP 98
[2023-11-09 16:55] VITALS: BP 116/57; PULSE 55
== END 2023-11-09 15:00 | disposition home or self-care (01) ==
LOC: JONCNONCHE 14:00 → J7W 14:00 → JONCNONCHE 15:00
PROVIDERS: ATTEND Internal Medicine Hematology & Oncology
PROC: 3E033GC Introduction of Other Therapeutic Substance into Peripheral Vein, Percutaneous Approach (ICD-10-PCS; principal; 2023-11-09)
DX: D50.9 Iron deficiency anemia, unspecified (principal)
CPT/HCPCS: 96365

== ENCOUNTER 2023-11-14 13:33 | Emergency (ER) | payer OTHER ==
[2023-11-14 13:42] VITALS: RESP 18; BMI 22.3
[2023-11-14 15:00] LABS: EPI CELLS 5 /uL (0-25.1); HYALINE CASTS 0 /uL (0-3.1); URINE APPEARANCE CLEAR; URINE BACTERIA 14 /uL (0-1359); URINE BILIRUBIN NEGATIVE (NEGATIVE); URINE COLOR YELLOW; URINE GLUCOSE (UA) 3+ (NEGATIVE); URINE KETONE NEGATIVE (NEGATIVE); URINE LEUK ESTERASE TRACE (NEGATIVE); URINE NITRITE NEGATIVE (NEGATIVE); URINE PROTEIN NEGATIVE (NEGATIVE); URINE UROBILINOGEN 0.2 mg/dL (0.2-1.0); URINE WBC 7 /uL (0-25.8)
[2023-11-14 15:45] LABS: URINE RBC 115.5 /uL (0-23.9)
[2023-11-14] MEDS ORDERED: ACETAMINOPHEN INJECTION 100 ML IVPB ONE (15:56)
[2023-11-14] MEDS ORDERED: METOCLOPRAMIDE HCL INJECTION 10 MG/2 ML VIAL ONE (15:56)
[2023-11-14] MEDS: ACETAMINOPHEN 1000 MG/100 ML BAG IVPB ONE (16:20)
[2023-11-14] MEDS: METOCLOPRAMIDE HCL INJECTION 10 MG/2 ML VIAL IVPB ONE (16:21)
[2023-11-14 16:37] LABS: BASO % 0.6 % (0-2.0); HEMATOCRIT 38.1 % (32.4-45.2); HEMOGLOBIN 12.2 GM/dL (10.7-15.3); LYMPH % 37.9 % (8-40); MCH 26.9 pg (25.7-33.7); MCHC 32.2 g/dl (32.0-36.0); MEAN CELL VOLUME 83.8 fl (80-96); MEAN PLT VOLUME 10.1 fl (7.5-11.1); NEUT % 45.5 % (42.8-82.8); PLATELET COUNT 200 10^3/uL (134-434); RBC 4.54 M/mm3 (3.60-5.2); RDW 15.9 % (11.6-15.6); WHITE BLOOD COUNT 8.5 K/mm3 (4.0-10.0)
[2023-11-14 17:20] LABS: POTASSIUM 4.3 mmol/L (3.5-5.1)
[2023-11-14 17:23] LABS: ALBUMIN 3.4 g/dl (3.4-5.0); BLOOD UREA NITROGEN 19.6 mg/dL (7-18); CALCIUM 8.8 mg/dL (8.5-10.1)
[2023-11-14 17:28] LABS: BILIRUBIN,TOTAL 0.6 mg/dL (0.2-1); TOT PROT 7.4 g/dl (6.4-8.2)
[2023-11-14 17:41] VITALS: BP 107/52; PULSE 54; TEMP 98.6
[2023-11-14] MEDS ORDERED: KETOROLAC TROMETHAMINE 15 MG/ML VIAL ONE (19:17)
[2023-11-14] MEDS: KETOROLAC TROMETHAMINE 15 MG/ML VIAL IVPUSH ONE (19:29)
== END 2023-11-15 00:27 | disposition home or self-care (01) ==
LOC: JER 13:33
PROC: 3E033NZ Introduction of Analgesics, Hypnotics, Sedatives into Peripheral Vein, Percutaneous Approach (ICD-10-PCS; principal; 2023-11-14)
PROC: 3E0333Z Introduction of Anti-inflammatory into Peripheral Vein, Percutaneous Approach (ICD-10-PCS; 2023-11-14)
PROC: 3E033GC Introduction of Other Therapeutic Substance into Peripheral Vein, Percutaneous Approach (ICD-10-PCS; 2023-11-14)
DX: R10.31 Right lower quadrant pain (principal); R11.0 Nausea; R30.0 Dysuria
CPT/HCPCS: 36415; 71045-TC-FY; 74178-TC; 80053; 81003; 82962; 84484; 85025; 87086; 96374; 96375; 99285-25; J0131; Q9967

== ENCOUNTER 2023-12-07 05:09 | Day surgery (SDC) | payer OTHER ==
[2023-12-07 07:29] VITALS: BMI 22.8
[2023-12-07 09:37] VITALS: TEMP 97.8
[2023-12-07 10:17] VITALS: BP 116/56; PULSE 64; RESP 16
== END 2023-12-07 10:18 | disposition home or self-care (01) ==
LOC: JASU-ENDO 05:09
PROVIDERS: ATTEND Internal Medicine Gastroenterology
PROC: 0DB78ZX Excision of Stomach, Pylorus, Via Natural or Artificial Opening Endoscopic, Diagnostic (ICD-10-PCS; 2023-12-07)
PROC: 0DB68ZX Excision of Stomach, Via Natural or Artificial Opening Endoscopic, Diagnostic (ICD-10-PCS; 2023-12-07)
PROC: 0DB48ZX Excision of Esophagogastric Junction, Via Natural or Artificial Opening Endoscopic, Diagnostic (ICD-10-PCS; 2023-12-07)
PROC: 0DB98ZX Excision of Duodenum, Via Natural or Artificial Opening Endoscopic, Diagnostic (ICD-10-PCS; principal; 2023-12-07 08:45)
DX: D50.9 Iron deficiency anemia, unspecified (principal); K29.80 Duodenitis without bleeding; K29.50 Unspecified chronic gastritis without bleeding; K25.9 Gastric ulcer, unspecified as acute or chronic, without hemorrhage or perforation
CPT/HCPCS: 36415; 82941; 82962; 88305-TC; 88341-TC; 88342-TC

== ENCOUNTER 2023-12-12 03:58 | Day surgery (SDC) | payer OTHER ==
[2023-12-06 09:59] VITALS: BMI 22.8
[2023-12-12 08:33] VITALS: TEMP 97.3
[2023-12-12 09:11] VITALS: BP 121/53; PULSE 54; RESP 16
== END 2023-12-12 09:55 | disposition home or self-care (01) ==
LOC: JASU-ENDO 03:58
PROVIDERS: ATTEND Internal Medicine Gastroenterology
PROC: 0DBP8ZX Excision of Rectum, Via Natural or Artificial Opening Endoscopic, Diagnostic (ICD-10-PCS; 2023-12-12)
PROC: 0DBH8ZX Excision of Cecum, Via Natural or Artificial Opening Endoscopic, Diagnostic (ICD-10-PCS; principal; 2023-12-12 08:00)
DX: Z12.11 Encounter for screening for malignant neoplasm of colon (principal); D12.0 Benign neoplasm of cecum; D12.8 Benign neoplasm of rectum; K64.8 Other hemorrhoids
CPT/HCPCS: 82962; 88305-TC

== ENCOUNTER 2024-07-29 12:30 | Emergency (ER) | payer OTHER ==
[2024-07-29 12:50] VITALS: BP 132/71; PULSE 65; RESP 18; TEMP 97.7; BMI 22.6
[2024-07-29 14:14] LABS: BASO % 0.5 % (0-2.0); EOS % 4.9 % (0-4.5); HEMATOCRIT 40.1 % (32.4-45.2); HEMOGLOBIN 13.6 GM/dL (10.7-15.3); INR 1.04 (0.83-1.09); LYMPH % 29.7 % (8-40); MCH 28.2 pg (25.7-33.7); MCHC 33.8 g/dl (32.0-36.0); MEAN CELL VOLUME 83.2 fl (80-96); MEAN PLT VOLUME 9.9 fl (7.5-11.1); MONO % 6.8 % (3.8-10.2); NEUT % 58.1 % (42.8-82.8); PLATELET COUNT 254 10^3/uL (134-434); PROTHROMBIN TIME (PATIENT) 11.9 SEC (9.7-13.0); RBC 4.82 M/mm3 (3.60-5.2); RDW 13.1 % (11.6-15.6)
[2024-07-29 14:28] LABS: POTASSIUM 5.3 mmol/L (3.5-5.1)
[2024-07-29 14:31] LABS: BLOOD UREA NITROGEN 9.7 mg/dL (7-18); CALCIUM 9.9 mg/dL (8.5-10.1)
[2024-07-29 14:34] LABS: CREATININE 0.8 mg/dL (0.55-1.3)
[2024-07-29] MEDS ORDERED: ACETAMINOPHEN INJECTION 100 ML ONE (14:36)
[2024-07-29] MEDS: ACETAMINOPHEN 1000 MG/100 ML BAG IVPB ONE (16:00)
[2024-07-29] MEDS ORDERED: KETOROLAC TROMETHAMINE 30 MG/1 ML VIAL ONE (16:15)
[2024-07-29] MEDS: KETOROLAC TROMETHAMINE 30 MG/1 ML VIAL IVPUSH ONE (16:24)
== END 2024-07-29 17:06 | disposition home or self-care (01) ==
LOC: JER 12:30
PROC: 3E033NZ Introduction of Analgesics, Hypnotics, Sedatives into Peripheral Vein, Percutaneous Approach (ICD-10-PCS; principal; 2024-07-29)
PROC: 3E0333Z Introduction of Anti-inflammatory into Peripheral Vein, Percutaneous Approach (ICD-10-PCS; 2024-07-29)
DX: J01.00 Acute maxillary sinusitis, unspecified (principal); R42 Dizziness and giddiness; R51.9 Headache, unspecified
CPT/HCPCS: 36415; 70450-TC; 70496-TC; 70498-TC; 80048; 85025; 85610; 86850; 86900; 86901; 96374; 96375; 99284-25; J0131; Q9967

== ENCOUNTER 2024-08-19 07:38 | Emergency (ER) | payer OTHER ==
[2024-08-19 08:21] VITALS: BMI 24.4
[2024-08-19] MEDS ORDERED: ACETAMINOPHEN INJECTION 100 ML ONE (09:11)
[2024-08-19] MEDS ORDERED: ALBUTEROL SO4 2.5/IPRATROPIUM 0.5 INH SOL 3 ML VIAL.NEB. NEB ONE (09:11)
[2024-08-19] MEDS: ACETAMINOPHEN 1000 MG/100 ML BAG IVPB ONE (09:30)
[2024-08-19] MEDS: ALBUTEROL SO4 2.5/IPRATROPIUM 0.5 INH SOL 3 ML VIAL.NEB. NEB ONE (09:30)
[2024-08-19] MEDS: SODIUM CHLORIDE 0.9% 500 ML INFUS.BAG IV ONE (09:30)
[2024-08-19 09:41] LABS: BASO % 0.6 % (0-2.0); EOS % 9.6 % (0-4.5); HEMATOCRIT 37.2 % (32.4-45.2); HEMOGLOBIN 12.1 GM/dL (10.7-15.3); LYMPH % 27.5 % (8-40); MCH 27.5 pg (25.7-33.7); MCHC 32.6 g/dl (32.0-36.0); MEAN CELL VOLUME 84.3 fl (80-96); MEAN PLT VOLUME 10.1 fl (7.5-11.1); MONO % 9.1 % (3.8-10.2); NEUT % 53.2 % (42.8-82.8); PLATELET COUNT 205 10^3/uL (134-434); RBC 4.41 M/mm3 (3.60-5.2); RDW 13.5 % (11.6-15.6); WHITE BLOOD COUNT 9.2 K/mm3 (4.0-10.0)
[2024-08-19 09:58] LABS: INR 1.02 (0.83-1.09); PROTHROMBIN TIME (PATIENT) 11.5 SEC (9.7-13.0)
[2024-08-19 09:59] LABS: POTASSIUM 4.5 mmol/L (3.5-5.1)
[2024-08-19 10:01] LABS: CALCIUM 9.6 mg/dL (8.5-10.1)
[2024-08-19 10:02] LABS: ALBUMIN 3.6 g/dl (3.4-5.0); BLOOD UREA NITROGEN 7.3 mg/dL (7-18)
[2024-08-19 10:05] LABS: CREATININE 0.7 mg/dL (0.55-1.3)
[2024-08-19 10:06] LABS: BILIRUBIN,TOTAL 0.8 mg/dL (0.2-1); TOT PROT 7.4 g/dl (6.4-8.2)
[2024-08-19 11:44] VITALS: BP 109/63; PULSE 76; RESP 17; TEMP 98.1
== END 2024-08-19 11:49 | disposition home or self-care (01) ==
LOC: JER 07:38
PROC: 3E033NZ Introduction of Analgesics, Hypnotics, Sedatives into Peripheral Vein, Percutaneous Approach (ICD-10-PCS; principal; 2024-08-19)
PROC: 3E0F7GC Introduction of Other Therapeutic Substance into Respiratory Tract, Via Natural or Artificial Opening (ICD-10-PCS; 2024-08-19)
DX: R05.9 Cough, unspecified (principal); M79.10 Myalgia, unspecified site; R07.89 Other chest pain; J06.9 Acute upper respiratory infection, unspecified; R09.81 Nasal congestion; Z20.822 Contact with and (suspected) exposure to COVID-19
CPT/HCPCS: 0241U-QW; 36415; 71045-TC-FY; 80053; 84484; 85025; 85610; 85730; 86850; 86900; 86901; 93005; 93010; 94640; 96374; 99284-25; J0131